=== PATIENT | female | born 1945 | race Caucasian/White ===

== ENCOUNTER → 2017-11-07 | Outpatient (CLI) | payer MEDICARE, BC ==
--- NOTE | 2017-11-19 12:11 | P.ARTDOP ---
Arterial Doppler LOWER EXTREMITY ARTERIAL DOPPLER: DATE OF SERVICE: 11/07/2017 Reason for study: Claudication. Doppler waveforms: []. Pulse volume recording: []. Pressure gradients: None. Ankle-brachial indices: Greater than 1 bilaterally. Toe pressures: [] on the right, [] on the left Impression: Very limited study with only ankle-brachial indices presented. These are greater than 1 and the limited data is normal..
== END | disposition home or self-care (01) ==
LOC: RADUSWWP 12:14
PROVIDERS: ATTEND Physical Medicine & Rehabilitation
DX: I70.213 Atherosclerosis of native arteries of extremities with intermittent claudication, bilateral legs (principal); M19.042 Primary osteoarthritis, left hand; M19.041 Primary osteoarthritis, right hand; M70.62 Trochanteric bursitis, left hip; M70.61 Trochanteric bursitis, right hip; F45.42 Pain disorder with related psychological factors; G89.21 Chronic pain due to trauma; M54.81 Occipital neuralgia; M50.122 Cervical disc disorder at C5-C6 level with radiculopathy; M47.22 Other spondylosis with radiculopathy, cervical region; M47.24 Other spondylosis with radiculopathy, thoracic region
CPT/HCPCS: 93922

== ENCOUNTER 2019-01-21 12:51 | Observation (INO) | payer MEDICARE, BC ==
[2019-01-21] MEDS ORDERED: ASPIRIN 81 MG PO STA (13:12)
[2019-01-21] MEDS ORDERED: NITROGLYCERIN OINT 1 INCH/GM PACKET TOPICAL STA (13:12)
--- NOTE | 2019-01-21 13:30 | ED ---
General Adult HPI - General Chief complaint: Chest Pain Stated complaint: RT lung and arm pain Time Seen by Provider: 01/21/19 12:55 Source: patient, RN notes reviewed Mode of arrival: ambulatory - History of Present Illness Initial comments: This is a 73-year-old female presents emergency department stating that she has had right-sided chest pain off-and-on for 3-4 years. Patient states it only happened once in a while and usually subsided after 2-3 minutes per patient stat es in the last few days she's had severe right-sided chest pain radiated to her right shoulder and into her jaw and it lasted for 45 minutes. Patient states she currently only has mild pain. Patient denies any diaphoresis. Patient denies any difficulty breathing. Patient denies any nausea vomiting. Patient states the last time she had severe pain was yesterday. - Related Data Home Medications Medication Instructions Recorded Confirmed Acetaminophen-Codeine 300-30mg 1 tab PO DAILY PRN 01/21/19 01/21/19 [Tylenol w/codeine #3] Estradiol [Estrace] 1 mg PO DAILY 01/21/19 01/21/19 HYDROcodone/APAP 7.5-325MG [[place] 1 tab PO DAILY PRN 01/21/19 01/21/19 7.5-325] Ipratropium [place] 0.06%Nasal 2 spray EA NOSTRIL BID PRN 01/21/19 01/21/19 [Atrovent Nasal 0.06%] Levothyroxine Sodium [Synthroid] 88 mcg PO DAILY 01/21/19 01/21/19 SUMAtriptan SUCCINATE [Onzetra 1 spray EA NOSTRIL DAILY PRN 01/21/19 01/21/19 Xsail] Tolterodine Tartrate [Detrol LA] 4 mg PO HS 01/21/19 01/21/19 clonazePAM [KlonoPIN] 0.5 mg PO DAILY@1400 01/21/19 01/21/19 clonazePAM [KlonoPIN] 1.5 mg PO BID 01/21/19 01/21/19 cycloSPORINE [Restasis] 1 drop BOTH EYES HS 01/21/19 01/21/19 Allergies Allergy/AdvReac Type Severity Reaction Status Date / Time Penicillins Allergy Swelling Verified 01/21/19 13:25 ciprofloxacin [From Cipro] AdvReac Nausea & Verified 01/21/19 13:25 Vomiting diazepam [From Valium] AdvReac Unknown Verified 01/21/19 13:25 duloxetine [From Cymbalta] AdvReac Nausea & Verified 01/21/19 13:25 Vomiting Iodinated Contrast- Oral and AdvReac Rash/Hives Verified 01/21/19 13:25 IV Dye meperidine [From Demerol] AdvReac Hallucinati Verified 01/21/19 13:25 ons rizatriptan [From Maxalt] AdvReac PALPATITION Verified 01/21/19 13:25 S topiramate [From Topamax] AdvReac SLURRED Verified 01/21/19 13:25 SPEACH Review of Systems ROS Statement: Those systems with pertinent positive or pertinent negative responses have been documented in the HPI. ROS Other: All systems not noted in ROS Statement are negative. Past Medical History Past Medical History: Thyroid Disorder Additional Past Medical History / Comment(s): Seizure History of Any Multi-Drug Resistant Organisms: None Reported Past Surgical History: Joint Replacement, Orthopedic Surgery Additional Past Surgical History / Comment(s): Lung,Ca, Skin Ca, Past Psychological History: No Psychological Hx Reported Smoking Status: Never smoker Past Alcohol Use History: Unable to Obtain Past Drug Use History: None Reported General Exam - General Exam Comments Initial Comments: GENERAL: Patient is well-developed and well-nourished. Patient is nontoxic and well- hydrated and is in mild distress. ENT: Neck is soft and supple. No significant lymphadenopathy is noted. Oropharynx is clear. Moist mucous membranes. Neck has full range of motion without eliciting any pain. EYES: The sclera were anicteric and conjunctiva were pink and moist. Extraocular movements were intact and pupils were equal round and reactive to light. Eyelids were unremarkable. PULMONARY: Unlabored respirations. Good breath sounds bilaterally. No audible rales rhonchi or wheezing was noted. CARDIOVASCULAR: There is a regular rate and rhythm without any murmurs gallops or rubs. ABDOMEN: Soft and nontender with normal bowel sounds. No palpable organomegaly was noted. There is no palpable pulsatile mass. SKIN: Skin is clear with no lesions or rashes and otherwise unremarkable. NEUROLOGIC: Patient is alert and oriented x3. Cranial nerves II through XII are grossly intact. Motor and sensory are also intact. Normal speech, volume and content. Symmetrical smile. MUSCULOSKELETAL: Normal extremities with adequate strength and full range of motion. LYMPHATICS: No significant lymphadenopathy is noted PSYCHIATRIC: Normal psychiatric evaluation. Course Vital Signs 01/21/19 12:52 Temperature 98.1 F Pulse Rate 72 Respiratory 22 Rate Blood Pressure 145/88 O2 Sat by Pulse 97 Oximetry Medical Decision Making - Medical Decision Making EKG shows normal sinus rhythm at 72 bpm FL interval 214 QRS is 86 Q-T intervals 380 QTC is 416. Patient's EKG shows no ST segment elevation or depression. Chest x-ray shows no acute abnormality. Ultrasound shows multiple gallstones in the gallbladder but no acute cholecystitis and no gallbladder the neck currently. I spoke with Dr. Craven he agreed to admit the patient admitted the patient wrote a minute orders I consult cardiology. - Lab Data Result diagrams: 01/21/19 13:23 01/21/19 13:23 Lab Results 01/21/19 01/21/19 01/21/19 Range/Units 13:23 13:23 13:23 WBC 10.9 H (3.8-10.6) k/uL RBC 4.67 (3.80-5.40) m/uL Hgb 14.0 (11.4-16.0) gm/dL Hct 41.7 (34.0-46.0) % MCV 89.3 (80.0-100.0) fL MCH 30.0 (25.0-35.0) pg MCHC 33.6 (31.0-37.0) g/dL RDW 13.9 (11.5-15.5) % Plt Count 299 (150-450) k/uL Neutrophils % 61 % Lymphocytes % 26 % Monocytes % 7 % Eosinophils % 3 % Basophils % 1 % Neutrophils # 6.7 (1.3-7.7) k/uL Lymphocytes # 2.8 (1.0-4.8) k/uL Monocytes # 0.8 (0-1.0) k/uL Eosinophils # 0.3 (0-0.7) k/uL Basophils # 0.1 (0-0.2) k/uL PT 10.3 (9.0-12.0) sec INR 1.0 (<1.2) APTT 24.7 (22.0-30.0) sec Sodium 138 (137-145) mmol/L Potassium 3.4 L (3.5-5.1) mmol/L Chloride 97 L (98-107) mmol/L Carbon Dioxide 33 H (22-30) mmol/L Anion Gap 8 mmol/L BUN 19 H (7-17) mg/dL Creatinine 0.81 (0.52-1.04) mg/dL Est GFR (CKD-EPI)AfAm 85 (>60 ml/min/1.73 sqM) Est GFR (CKD-EPI)NonAf 74 (>60 ml/min/1.73 sqM) Glucose 88 (74-99) mg/dL Calcium 9.5 (8.4-10.2) mg/dL Magnesium 2.0 (1.6-2.3) mg/dL Total Bilirubin 0.8 (0.2-1.3) mg/dL AST 24 (14-36) U/L ALT 19 (9-52) U/L Alkaline Phosphatase 58 (38-126) U/L Troponin I (0.000-0.034) ng/mL Total Protein 6.7 (6.3-8.2) g/dL Albumin 4.1 (3.5-5.0) g/dL 01/21/19 Range/Units 13:23 WBC (3.8-10.6) k/uL RBC (3.80-5.40) m/uL Hgb (11.4-16.0) gm/dL Hct (34.0-46.0) % MCV (80.0-100.0) fL MCH (25.0-35.0) pg MCHC (31.0-37.0) g/dL RDW (11.5-15.5) % Plt Count (150-450) k/uL Neutrophils % % Lymphocytes % % Monocytes % % Eosinophils % % Basophils % % Neutrophils # (1.3-7.7) k/uL Lymphocytes # (1.0-4.8) k/uL Monocytes # (0-1.0) k/uL Eosinophils # (0-0.7) k/uL Basophils # (0-0.2) k/uL PT (9.0-12.0) sec INR (<1.2) APTT (22.0-30.0) sec Sodium (137-145) mmol/L Potassium (3.5-5.1) mmol/L Chloride (98-107) mmol/L Carbon Dioxide (22-30) mmol/L Anion Gap mmol/L BUN (7-17) mg/dL Creatinine (0.52-1.04) mg/dL Est GFR (CKD-EPI)AfAm (>60 ml/min/1.73 sqM) Est GFR (CKD-EPI)NonAf (>60 ml/min/1.73 sqM) Glucose (74-99) mg/dL Calcium (8.4-10.2) mg/dL Magnesium (1.6-2.3) mg/dL Total Bilirubin (0.2-1.3) mg/dL AST (14-36) U/L ALT (9-52) U/L Alkaline Phosphatase (38-126) U/L Troponin I <0.012 (0.000-0.034) ng/mL Total Protein (6.3-8.2) g/dL Albumin (3.5-5.0) g/dL Disposition Clinical Impression: Chest pain, Cholelithiasis Disposition: ADMITTED IP TO THIS [facility] Referrals: Jerry Craven DO [Primary Care Provider] - 1-2 days Time of Disposition: 15:31
[2019-01-21 13:33] LABS: Basophils # (A) 0.1 k/uL (0-0.2); Basophils % (A) 1 %; Eosinophils # (A) 0.3 k/uL (0-0.7); Eosinophils % (A) 3 %; HCT 41.7 % (34.0-46.0); Lymphocytes # (A) 2.8 k/uL (1.0-4.8); Lymphocytes % (A) 26 %; MCHC 33.6 g/dL (31.0-37.0); MCV 89.3 fL (80.0-100.0); Mean Platelet Volume 6.7; Monocytes # (A) 0.8 k/uL (0-1.0); Monocytes % (A) 7 %; Neutrophils # (A) 6.7 k/uL (1.3-7.7); Neutrophils % (A) 61 %; Platelet Count 299 k/uL (150-450); RBC 4.67 m/uL (3.80-5.40); RDW 13.9 % (11.5-15.5); WBC 10.9 k/uL (3.8-10.6)
[2019-01-21 13:43] LABS: Albumin 4.1 g/dL (3.5-5.0); Calcium 9.5 mg/dL (8.4-10.2); Potassium 3.4 mmol/L (3.5-5.1); Total Bilirubin 0.8 mg/dL (0.2-1.3); Total Protein 6.7 g/dL (6.3-8.2)
--- NOTE | 2019-01-21 13:49 | XR ---
EXAMINATION TYPE: XR chest 2V DATE OF EXAM: 01/21/2019 COMPARISON: Chest x-ray January 16, 2010 HISTORY: Right-sided chest pain. TECHNIQUE: Frontal and lateral views of the chest are obtained. FINDINGS: Overlying EKG leads are present. Left hilar and suprahilar surgical clips are again seen. P ectus excavatum deformity on lateral view redemonstrated. Persistent some left-sided volume loss. The re is no new suspicious focal air space opacity, pleural effusion, or pneumothorax seen. The cardiac silhouette size remains within normal limits. The osseous structures are intact. IMPRESSION: Chronic changes without acute pulmonary process.
[2019-01-21 13:54] LABS: Partial Thromboplastin Time 24.7 sec (22.0-30.0); Prothrombin Time 10.3 sec (9.0-12.0)
--- NOTE | 2019-01-21 14:37 | US ---
EXAMINATION TYPE: US gallbladder DATE OF EXAM: 01/21/2019 COMPARISON: NONE CLINICAL HISTORY: Right-sided chest pain . RUQ pain, history of gallstones EXAM MEASUREMENTS: Liver Length: 14.3 cm Gallbladder Wall: 0.3 cm CBD: 0.4 cm Right Kidney: 10.0 x 4.1 x 4.1 cm Technical limitations due to overlying bowel content Pancreas: Tail obscured by overlying bowel gas Liver: best seen intercostally, appears heterogeneous Gallbladder: multiple stones Evidence for sonographic Blum's sign: no CBD: appears wnl Right Kidney: possible stone lower pole = 0.7cm Heterogeneous hyperechoic appearance of liver. Gallbladder shows multiple shadowing gallstones. No pe richolecystic fluid or abnormal gallbladder wall thickening. IMPRESSION: Confirmation of known gallstones. No convincing secondary ultrasound evidence for acute c holecystitis.
[2019-01-21] MEDS ORDERED: NITROGLYCERIN SL TABS 0.4 MG TAB SUBLINGUAL PRN (15:31)
[2019-01-21 17:05] VITALS: BMI 21.2
[2019-01-21] MEDS: NITROGLYCERIN OINT 1 INCH/GM PACKET TOPICAL SCH (20:05)
[2019-01-21] MEDS ORDERED: HYDROcodone/APAP 7.5-325MG 1 EACH TAB PO PRN (21:06)
[2019-01-21] MEDS ORDERED: IPRATROPIUM BROMIDE 0.06% NASAL SPRAY (15 ML) EA NOSTRIL PRN (21:06)
[2019-01-21] MEDS ORDERED: OXYBUTYNIN 10 MG TAB.ER.24 PO SCH (21:29)
[2019-01-21] MEDS: DOCUSATE 100 MG CAP PO SCH (21:34)
[2019-01-21] MEDS: clonazePAM 1 MG TAB PO SCH (21:34)
[2019-01-21 23:46] VITALS: RESP 18
[2019-01-22 02:58] LABS: Cholesterol 193 mg/dL (<200); HDL Cholesterol 57 mg/dL (40-60); LDL Cholesterol,Calculated 97 mg/dL (0-99); Triglycerides 193 mg/dL (<150)
[2019-01-22] MEDS ORDERED: LEVOTHYROXINE 88 MCG TAB PO SCH (06:30)
[2019-01-22] MEDS: clonazePAM 1 MG TAB PO SCH (06:33)
[2019-01-22] MEDS ORDERED: CAFFEINE CITRATE 60 MG/3 ML VIAL IV PRN (07:53)
[2019-01-22] MEDS ORDERED: AMINOPHYLLINE 500 MG/20 ML VIAL IV PRN (07:53)
--- NOTE | 2019-01-22 07:53 | P.CRDCN ---
History of Present Illness Consult date: 01/22/19 Chief complaint: Chest pain History of present illness: This is a pleasant 73-year-old female patient with no significant cardiac history but history of arthritis, the patient is a retired nurse, presented to the hospital complaining of chest discomfort. The patient describes chest discomfort, over the right and mid chest, as a sharp kind of discomfort, associated with shortness of breath, with radiation to the jaw. She stated that the chest discomfort is not exertional. It started about 4 weeks ago but lately it has been more often and more intense compared to before. No dizziness or lightheadedness, heart racing or fluttering, or syncope. Because the pain got more intense and more often she decided to come to the emergency room. No prior cardiac history. No history of coronary artery disease, congestive heart failure, or cardiac arrhythmia. During this admission, the patient EKG showed sinus rhythm without any significant ST or T-wave abnormalities. 3 sets of cardiac enzymes were checked and came in to be unr emarkable. The chest x-ray showed no acute abnormalities. The patient was ruled out for acute coronary event. No history of smoking. No significant family history of premature CAD. Past Medical History Past Medical History: Thyroid Disorder Additional Past Medical History / Comment(s): Seizure after lung surgeries History of Any Multi-Drug Resistant Organisms: None Reported Past Surgical History: Adenoidectomy, Appendectomy, Hysterectomy, Joint Replacement, Orthopedic Surgery, Tonsillectomy Additional Past Surgical History / Comment(s): right upper lobe Lung Ca, Skin Ca, epiderals back and neck, right thumb repair, bunionectomy Past Psychological History: No Psychological Hx Reported Smoking Status: Former smoker Past Alcohol Use History: Unable to Obtain Past Drug Use History: None Reported Medications and Allergies Home Medications Medication Instructions Recorded Confirmed Type Acetaminophen-Codeine 300-30mg 1 tab PO DAILY PRN 01/21/19 01/21/19 History [Tylenol w/codeine #3] Docusate [Colace] 100 mg PO DAILY 01/21/19 01/21/19 History Estradiol [Estrace] 1 mg PO DAILY 01/21/19 01/21/19 History HYDROcodone/APAP 7.5-325MG [[place] 1 tab PO DAILY PRN 01/21/19 01/21/19 History 7.5-325] Ipratropium [place] 0.06%Nasal 2 spray EA NOSTRIL BID PRN 01/21/19 01/21/19 History [Atrovent Nasal 0.06%] Levothyroxine Sodium [Synthroid] 88 mcg PO DAILY 01/21/19 01/21/19 History Psyllium Husk [Metamucil] PO 01/21/19 History SUMAtriptan SUCCINATE [Onzetra 1 spray EA NOSTRIL DAILY PRN 01/21/19 01/21/19 History Xsail] Tolterodine Tartrate [Detrol LA] 4 mg PO HS 01/21/19 01/21/19 History clonazePAM [KlonoPIN] 0.5 mg PO DAILY@1400 01/21/19 01/21/19 History clonazePAM [KlonoPIN] 1.5 mg PO BID 01/21/19 01/21/19 History cycloSPORINE [Restasis] 1 drop BOTH EYES HS 01/21/19 01/21/19 History Allergies Allergy/AdvReac Type Severity Reaction Status Date / Time Penicillins Allergy Swelling Verified 01/21/19 13:25 ciprofloxacin [From Cipro] AdvReac Nausea & Verified 01/21/19 13:25 Vomiting diazepam [From Valium] AdvReac Unknown Verified 01/21/19 13:25 duloxetine [From Cymbalta] AdvReac Nausea & Verified 01/21/19 13:25 Vomiting Iodinated Contrast- Oral and AdvReac Rash/Hives Verified 01/21/19 13:25 IV Dye meperidine [From Demerol] AdvReac Hallucinati Verified 01/21/19 13:25 ons rizatriptan [From Maxalt] AdvReac PALPATITION Verified 01/21/19 13:25 S topiramate [From Topamax] AdvReac SLURRED Verified 01/21/19 13:25 SPEACH Physical Exam Vitals: Vital Signs Temp Pulse Pulse Resp BP BP Pulse Ox 01/22/19 03:58 98.0 F 74 18 116/56 98 01/21/19 23:45 98.1 F 74 18 139/73 99 01/21/19 19:28 97.5 F L 75 107/67 95 01/21/19 16:01 76 16 136/72 99 01/21/19 16:00 97 F L 67 18 111/70 97 01/21/19 12:52 98.1 F 72 22 145/88 97 Intake and Output 01/21/19 01/22/19 01/22/19 22:59 06:59 14:59 Other: Voiding Method Toilet Toilet # Voids 1 2 - Constitutional General appearance: no acute distress - Respiratory Respiratory: bilateral: CTA - Cardiovascular Rhythm: regular Heart sounds: normal: S1, S2 Results 01/21/19 13:23 01/21/19 13:23 Cardiac Enzymes 01/21/19 01/21/19 01/21/19 Range/Units 13:23 13:23 19:38 AST 24 (14-36) U/L Troponin I <0.012 <0.012 (0.000-0.034) ng/mL 01/22/19 Range/Units 01:16 AST (14-36) U/L Troponin I <0.012 (0.000-0.034) ng/mL Coagulation 01/21/19 Range/Units 13:23 PT 10.3 (9.0-12.0) sec APTT 24.7 (22.0-30.0) sec Lipids 01/21/19 Range/Units 13:23 Triglycerides 193 H (<150) mg/dL Cholesterol 193 (<200) mg/dL HDL Cholesterol 57 (40-60) mg/dL CBC 01/21/19 Range/Units 13:23 WBC 10.9 H (3.8-10.6) k/uL RBC 4.67 (3.80-5.40) m/uL Hgb 14.0 (11.4-16.0) gm/dL Hct 41.7 (34.0-46.0) % Plt Count 299 (150-450) k/uL Comprehensive Metabolic Panel 01/21/19 Range/Units 13:23 Sodium 138 (137-145) mmol/L Potassium 3.4 L (3.5-5.1) mmol/L Chloride 97 L (98-107) mmol/L Carbon Dioxide 33 H (22-30) mmol/L BUN 19 H (7-17) mg/dL Creatinine 0.81 (0.52-1.04) mg/dL Glucose 88 (74-99) mg/dL Calcium 9.5 (8.4-10.2) mg/dL AST 24 (14-36) U/L ALT 19 (9-52) U/L Alkaline Phosphatase 58 (38-126) U/L Total Protein 6.7 (6.3-8.2) g/dL Albumin 4.1 (3.5-5.0) g/dL Current Medications Generic Name Dose Route Start Last Admin Trade Name Freq PRN Reason Stop Dose Admin Hydrocodone Bitart/Acetaminophen 1 each 01/21/19 21:06 [place] 7.5-325 PO DAILY PRN Pain Aspirin 325 mg 01/22/19 09:00 Aspirin PO DAILY ALEXA Clonazepam 0.5 mg 01/22/19 14:00 Klonopin PO DAILY@1400 ALEXA Clonazepam 1.5 mg 01/21/19 21:15 01/22/19 06:33 Klonopin PO 1.5 mg BID ALEXA Administration Cyclosporine 1 drops 01/22/19 21:00 Restasis 0.05% Ophth Soln BOTH EYES HS ALEXA Docusate Sodium 100 mg 01/21/19 21:15 01/21/19 21:34 Colace PO 100 mg DAILY ALEXA Administration Estradiol 1 mg 01/22/19 09:00 Estrace PO DAILY ALEXA Ipratropium [place] 2 spray 01/21/19 21:06 Atrovent Nasal EA NOSTRIL BID PRN Congestion Levothyroxine Sodium 88 mcg 01/22/19 06:30 01/22/19 06:31 Synthroid PO 88 mcg DAILY@0630 ALEXA Administration Nitroglycerin 0.4 mg 01/21/19 15:31 Nitrostat SUBLINGUAL Q5M PRN Chest Pain Nitroglycerin 1 inch 01/21/19 18:00 01/21/19 20:05 Nitro-Bid Oint TOPICAL Not Given Q6HR ALEXA Oxybutynin Chloride 10 mg 01/21/19 21:29 01/21/19 21:36 Ditropan Xl PO 10 mg HS ALEXA Administration Intake and Output 01/21/19 01/22/19 01/22/19 22:59 06:59 14:59 Other: Voiding Method Toilet Toilet # Voids 1 2 01/21/19 13:23 01/21/19 13:23 Assessment and Plan Assessment: Assessment #1 atypical/intermittent chest discomfort Plan #1 acute coronary event was ruled out #2 rule out severe coronary artery disease #3 I recommended obtaining a stress test #4 follow-up with the patient Thank you for allowing us participate in her care
[2019-01-22] MEDS ORDERED: DIPYRIDAMOLE IV ONE (08:00)
[2019-01-22] MEDS ORDERED: SODIUM CHLORIDE 0.9% IV ONE (08:00)
[2019-01-22] MEDS ORDERED: ESTRADIOL 0.5 MG TAB PO SCH (09:00)
[2019-01-22] MEDS ORDERED: ASPIRIN 325 MG TAB PO SCH (09:00)
[2019-01-22] MEDS: DOCUSATE 100 MG CAP PO SCH (11:06)
--- NOTE | 2019-01-22 12:02 | NM ---
EXAMINATION TYPE: NM stress persantine cardiolit DATE OF EXAM: 01/22/2019 COMPARISON: NONE HISTORY: Chest pain TECHNIQUE: After the intravenous administration of 10 mCi Tc 99m Sestamibi - Cardiolite resting SPEC T images acquired 45 minutes post injection. The patient received 31 mg Persantine, 24.6 mCi Tc 99m Sestamibi - Stress images obtained 40 minutes post injection FINDINGS: Review of stress and rest SPECT images demonstrates mild decreased uptake along the inferolateral lef t ventricle on stress as compared to rest images. Gated analysis shows normal wall motion with an es timated left ventricular ejection fraction of 68 %. 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
[2019-01-22] MEDS ORDERED: SODIUM CHLORIDE 0.9% 1,000 ML in EMPTY BAG 1 BAG IV ONE (12:20)
[2019-01-22] MEDS ORDERED: diphenhydrAMINE 50 MG/ML 1 ML VIAL IVP STA (12:29)
[2019-01-22] MEDS ORDERED: FAMOTIDINE 20 MG/2 ML VIAL IV STA (12:29)
[2019-01-22] MEDS ORDERED: methylPREDNISolone SOD SUCCI 125 MG/2 ML VIAL IV STA (12:29)
--- NOTE | 2019-01-22 12:38 | EST ---
EXERCISE STRESS DATE OF SERVICE: 01/22/2019 AGE: 73 SEX: Female HT: 5'1" WT: 120 pounds PROTOCOL: Persantine Cardiolite STAGE: DURATION OF EXERCISE: HEART RATE REST: 62 BLOOD PRESSURE REST: 104/63 MAXIMUM HEART RATE ACHIEVED: 84 MAXIMUM BLOOD PRESSURE: 145/66 85% MPHR: 127 100% MPHR: 149 METS: INDICATIONS: Chest pain. CLINICAL INFORMATION: STRESS DATA: Heart rate 62, pressure is 104/63 mmHg. Baseline EKG showed sinus mechanism. The patient was given 31 mg of Persantine per protocol. Max heart rate was 84 beats per minute and maximum pressure was 145/66 mmHg. Clinically, the patient reported no symptoms and the EKG did not show any significant ST or T-wave abnormalities concerning for ischemia. CONCLUSION: 1. Nondiagnostic electrocardiogram stress testing in response to . 2. Please follow up on the Cardiolite portion on separate report from radiology department. MMODL / IJN: [id number] /
--- NOTE | 2019-01-22 12:51 | P.PN ---
Progress Note - Text Results of stress test discussed with the patient and her . We recommend proceeding with cardiac catheterization for definitive diagnosis. I have discussed the risks, benefits and alternative therapies for the above-mentioned procedure and for both sedation/analgesia as well as necessary blood product administration, if indicated, as they pertain to this patient. The patient has indicated understanding and acceptance of the risks and procedures discussed. Questions have been answered appropriately and she is agreeable to move forward with the above stated procedure.
[2019-01-22] MEDS ORDERED: diphenhydrAMINE 50 MG/ML 1 ML VIAL IVP ONE (12:52)
[2019-01-22] MEDS ORDERED: methylPREDNISolone SOD SUCCI 125 MG/2 ML VIAL IV ONE (12:52)
[2019-01-22] MEDS ORDERED: IV FLUID CONTINUATION 1,000 ML IV ONE (12:53)
[2019-01-22] MEDS: MIDAZOLAM (PF) 2 MG/2 ML VIAL IV ONE ×2 (12:58→13:03)
[2019-01-22] MEDS ORDERED: LIDOCAINE 1% INJ 10MG/ML (20 ML MDV) SQ ONE (13:01)
[2019-01-22] MEDS ORDERED: MIDAZOLAM (PF) 2 MG/2 ML VIAL IV ONE (13:06)
[2019-01-22] MEDS ORDERED: IOPAMIDOL-370 125ML BTL INJ ONE (13:14)
[2019-01-22] MEDS ORDERED: RX INFO: IV CONTRAST WAS GIVEN 1 EACH MISC MISCELLANE PRN (13:22)
--- NOTE | 2019-01-22 13:25 | P.PCN ---
Date of Procedure: 01/22/19 Operative Findings: CARDIAC CATHETERIZATION PERFORMING PHYSICIAN: David Ribera MD, RPVI PROCEDURE PERFORMED: 1. Selective right and left coronary angiogram 2. Left heart catheterization INDICATION: This is a 73-year-old female patient who presented to the hospital with a chest discomfort and underwent stress test which revealed anterior ischemia. COMPLICATION: None APPROACH: Right common femoral artery LEVEL OF SEDATION: Moderate with this patient next 14 minutes PROCEDURE DESCRIPTION: After obtaining an informed consent, the patient was brought to cardiac production laborer. Local anesthesia was performed using lidocaine subcutaneously. The right common femoral artery was cannulated using Seldinger technique, the guidewire passed easily, following that we advanced a 6 Ivorian sheath dilator assembly, the wire and dilator were removed and sheath was flushed. Selective right and left coronary angiogram using a 6-Ivorian JR4 and JL catheters. Following that we did left heart catheterization using 6-Ivorian pigtail catheter. The procedure was completed there was no complication. SELECTIVE CORONARY ANGIOGRAM: The right coronary artery: Is a large caliber vessel and seems to be angiographically normal. Distally bifurcates into PDA and PLV branches both appeared to be angiographically normal. Left main: Has mild disease only in the range of 20-30%. The left circumflex: Is a moderate caliber vessel and nondominant vessel. It gives rises into 2 OM branches and both appeared to be angiographically normal. The left anterior descending artery: It is a large caliber vessel. Its angiographically normal. It gives rises into a medium size diagonal branch which seems to be angiographically normal. 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
[2019-01-22] MEDS ORDERED: SODIUM CHLORIDE 0.9% 1,000 ML IV SCH (13:30)
[2019-01-22 13:37] VITALS: TEMP 97.9
[2019-01-22] MEDS ORDERED: clonazePAM 1 MG TAB PO SCH (14:00)
[2019-01-22] MEDS ORDERED: Potassium Replacement Protocol 1 EACH MISC MISCELLANE PRN (15:19)
[2019-01-22 17:18] VITALS: BP 109/65; PULSE 77
[2019-01-22] MEDS: POTASSIUM CHLORIDE ER 20 MEQ TAB.ER PO SCH ×2 (17:54→18:34)
[2019-01-22] MEDS ORDERED: cycloSPORINE 0.05% OPHTH 0.4 ML DROPERETTE BOTH EYES SCH (21:00)
[2019-01-22] MEDS ORDERED: OXYBUTYNIN 10 MG TAB.ER.24 PO SCH (21:00)
== END 2019-01-22 18:53 | disposition home or self-care (01) ==
LOC: EC 12:51 → 1SOBS 15:40
PROVIDERS: ADMIT Family Medicine; ATTEND Family Medicine
DX: R07.89 Other chest pain (principal); R94.39 Abnormal result of other cardiovascular function study; I25.10 Atherosclerotic heart disease of native coronary artery without angina pectoris; K80.20 Calculus of gallbladder without cholecystitis without obstruction; E07.9 Disorder of thyroid, unspecified; R06.02 Shortness of breath; M19.90 Unspecified osteoarthritis, unspecified site; Z79.890 Hormone replacement therapy; Z79.891 Long term (current) use of opiate analgesic; Z79.899 Other long term (current) drug therapy; Z88.0 Allergy status to penicillin; Z88.1 Allergy status to other antibiotic agents; Z88.5 Allergy status to narcotic agent; Z88.8 Allergy status to other drugs, medicaments and biological substances; Z91.041 Radiographic dye allergy status; Z85.828 Personal history of other malignant neoplasm of skin; Z85.118 Personal history of other malignant neoplasm of bronchus and lung; Z90.710 Acquired absence of both cervix and uterus; Z90.49 Acquired absence of other specified parts of digestive tract; Z96.60 Presence of unspecified orthopedic joint implant; Z87.891 Personal history of nicotine dependence; Z86.69 Personal history of other diseases of the nervous system and sense organs
CPT/HCPCS: 99152; 99285; 36415; 93005; 93017; 93458; 80061; 80053; 83735; 84484 ×2; 85025; 85610; 85730; 71046; 76705; 78452; G0378 ×2; C1894; C1769 ×2; C1760; A9500; J1200; J2930; J2001; J1245; Q9967; J2250

== ENCOUNTER 2019-02-02 07:49 | Day surgery (SDC) | payer MEDICARE, BC ==
[2019-01-29 15:21] VITALS: BMI 21.2
[~2019-02-02 07:49] MED LIST: CLINDAMYCIN 900 MG in DEXTROSE 5% IN WATER 50 ML IVPB ONE; DEXAMETHASONE SOD PHOSPHATE 10 MG/ML 1 ML VIAL IV ONE; GENTAMICIN 280 MG in SODIUM CHLORIDE 0.9% 100 ML IVPB ONE; HEPARIN SODIUM,PORCINE 5,000 UNIT/ML 1 ML VIAL SQ ONE; LACTATED RINGERS 1,000 ML IV SCH; LIDOCAINE 1% 20 ML VIAL (10MG/ML) FOR IV START INTRADERMA PRN; ONDANSETRON 4 MG/2 ML VIAL IVP ONE; SCOPOLAMINE 1.5MG/72HR PATCH TRANSDERM ONE
--- NOTE | 2019-02-02 09:13 | P.GSHP ---
History of Present Illness H&P Date: 02/02/19 Chief Complaint: Right upper quadrant pain This a 73-year-old female who presents today for laparoscopic cholecystectomy. Patient with right quadrant pain. 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, hypotension, gallstones, constipation, graves disease, "bladder falls backwords", hx lung and skin cancer History of Any Multi-Drug Resistant Organisms: None Reported Past Surgical History: Adenoidectomy, Appendectomy, Breast Surgery, Heart Catheterization, Hysterectomy, Orthopedic Surgery, Tonsillectomy Additional Past Surgical History / Comment(s): right upper lung lobectomy, right thumb repair, rt bunionectomy, heart catheterization 01/22/19, corby mastectomy, mult breast biopsies, breast implants/later removed, Past Anesthesia/Blood Transfusion Reactions: Previous Problems w/ Anesthesia, Motion Sickness Additional Past Anesthesia/Blood Transfusion Reaction / Comment(s): "hypotension when younger" Past Psychological History: No Psychological Hx Reported Smoking Status: Former smoker Past Alcohol Use History: None Reported Additional Past Alcohol Use History / Comment(s): quit smoking 14 yrs ago, started smoking age 17, 3-4 cigarettes daily Past Drug Use History: None Reported - Past Family History Mother Family Medical History: Cancer Daughter(s) Family Medical History: Cancer Medications and Allergies Home Medications Medication Instructions Recorded Confirmed Type Acetaminophen-Codeine 300-30mg 1 tab PO DAILY PRN 01/21/19 01/29/19 History [Tylenol w/codeine #3] Docusate [Colace] 100 mg PO DAILY 01/21/19 01/29/19 History Estradiol [Estrace] 1 mg PO DAILY 01/21/19 01/29/19 History HYDROcodone/APAP 7.5-325MG [[place] 1 tab PO DAILY PRN 01/21/19 01/29/19 History 7.5-325] Ipratropium [place] 0.06%Nasal 2 spray EA NOSTRIL BID PRN 01/21/19 01/29/19 History [Atrovent Nasal 0.06%] Levothyroxine Sodium [Synthroid] 88 mcg PO DAILY 01/21/19 01/29/19 History Psyllium Husk [Metamucil] 0.8 cap PO DAILY 01/21/19 01/29/19 History SUMAtriptan SUCCINATE [Onzetra 1 spray EA NOSTRIL DAILY PRN 01/21/19 01/29/19 History Xsail] Tolterodine Tartrate [Detrol LA] 4 mg PO HS 01/21/19 01/29/19 History clonazePAM [KlonoPIN] 0.5 mg PO DAILY@1400 01/21/19 01/29/19 History clonazePAM [KlonoPIN] 1.5 mg PO BID 01/21/19 01/29/19 History cycloSPORINE [Restasis] 1 drop BOTH EYES HS 01/21/19 01/29/19 History Lidocaine 5% Patch [Lidoderm] 2 patch TOPICAL DAILY PRN 01/29/19 01/29/19 History Allergies Allergy/AdvReac Type Severity Reaction Status Date / Time Penicillins Allergy Swelling Verified 01/29/19 14:54 ciprofloxacin [From Cipro] AdvReac Nausea & Verified 01/29/19 14:54 Vomiting diazepam [From Valium] AdvReac "did not Verified 01/29/19 14:54 work" duloxetine [From Cymbalta] AdvReac Nausea & Verified 01/29/19 14:54 Vomiting Iodinated Contrast Media AdvReac Rash/Hives Verified 01/29/19 14:54 [Iodinated Contrast- Oral and IV Dye] meperidine [From Demerol] AdvReac Hallucinati Verified 01/29/19 14:54 ons/migrain es rizatriptan [From Maxalt] AdvReac PALPATITION Verified 01/29/19 14:54 S topiramate [From Topamax] AdvReac SLURRED Verified 01/29/19 14:54 SPEACH chloraprep Allergy skin peeled Uncoded 01/29/19 15:34 Surgical - Exam Vital Signs Temp Pulse Resp BP Pulse Ox 97.9 F 80 18 131/58 99 02/02/19 08:22 02/02/19 08:22 02/02/19 08:22 02/02/19 08:22 02/02/19 08:22 - General well developed, well nourished, no distress - Eyes PERRL - ENT normal pinna - Neck no masses - Respiratory normal expansion - Cardiovascular Rhythm: regular - Abdomen Abdomen: soft, non tender Assessment and Plan Assessment: Cholelithiasis Right quadrant pain We'll perform laparoscopic cholecystectomy.
[2019-02-02] MEDS ORDERED: NEOSTIGMINE 1 MG/ML 10 ML VIAL ONE (09:22)
[2019-02-02] MEDS ORDERED: ROCURONIUM BROMIDE 10 MG/ML 10 ML VIAL IV ONE (09:22)
[2019-02-02] MEDS ORDERED: GLYCOPYRROLATE 0.2 MG/ML 2 ML VIAL ONE (09:22)
[2019-02-02] MEDS ORDERED: PROPOFOL 10 MG/ML 20 ML VIAL IV ONE (09:22)
[2019-02-02] MEDS ORDERED: MIDAZOLAM 2 MG/2 ML VIAL ONE (09:22)
[2019-02-02] MEDS ORDERED: fentaNYL (PF) 50 MCG/ML 2 ML AMP ONE (09:22)
[2019-02-02] MEDS ORDERED: LIDOCAINE 1% INJ 10MG/ML (20 ML MDV) ONE (09:22)
[2019-02-02] MEDS ORDERED: BUPIVACAINE (PF) 0.5% 30 ML VIAL SQ ONE (09:49)
--- NOTE | 2019-02-02 10:10 | P.OP ---
Date of Procedure: 02/02/19 Preoperative Diagnosis: Cholelithiasis Postoperative Diagnosis: Cholelithiasis Procedure(s) Performed: Laparoscopic cholecystectomy Anesthesia: ROMULO Surgeon: Kirill Ocampo Pathology: other (Gallbladder) Condition: stable Disposition: PACU Description of Procedure: The patient was placed on the operating table. The patient received a general endotracheal tube anesthesia. The patients abdomen was prepped and draped in the usual sterile fashion. Through an infraumbilical stab incision, the fascia of the anterior abdominal wall was grasped with a pair of Kochers and then the Veress needle was placed in the peritoneal cavity. Position of the Veress needle was confirmed with positive drop test. The abdomen was then insufflated. After adequate insufflation, the 10 mm trocar was placed in the peritoneal cavity. Following this the laparoscope was placed in the peritoneal cavity. The patient was placed in the head-up, right side up position and then a 5 mm trocar was placed in the right lateral and right subcostal position under direct visualization. A 8 mm trocar was placed in the epigastric position. The gallbladder was grasped in the fundus and infundibulum. Traction on the gallbladder was placed in the lateral and the cephalad positions. The triangle of Calot was visualized.. The cystic duct was bluntly dissected until the union of the cystic duct and common bile duct was seen. A critical view of safety was achieved. The cystic duct was then divided and sealed with the Harmonic scissors. A PDS Endoloop was then placed throughout the cystic duct stump. The cystic artery divided and sealed with the Harmonic scissors. The gallbladder was then removed from the liver bed using Harmonic scissors. The gallbladder was then extracted through the epigastric port site. Operative field was checked for any bleeding spots and Harmonic scissors was used to coagulate the liver bed. The abdomen was irrigated. The trocars were removed. The skin was closed using interrupted 3-0 Vicryl suture. Dermabond dressing were applied. The patient tolerated the procedure well.
[2019-02-02 10:22] VITALS: TEMP 97.3
[2019-02-02] MEDS: HYDROmorphone 0.5 MG/0.5 ML SYRINGE IVP PRN ×2 (10:43→10:54)
[2019-02-02] MEDS ORDERED: HYDROcodone/APAP 5-325MG 1 EACH TAB PO ONE (11:00)
[2019-02-02] MEDS ORDERED: ONDANSETRON 4 MG/2 ML VIAL IVP ONE (11:00)
[2019-02-02 11:32] VITALS: BP 123/71; PULSE 67; RESP 18
== END 2019-02-02 12:26 | disposition home or self-care (01) ==
LOC: OR 07:49
PROVIDERS: ATTEND Surgery
DX: K80.10 Calculus of gallbladder with chronic cholecystitis without obstruction (principal); E05.00 Thyrotoxicosis with diffuse goiter without thyrotoxic crisis or storm; M19.90 Unspecified osteoarthritis, unspecified site; Z87.01 Personal history of pneumonia (recurrent); Z85.828 Personal history of other malignant neoplasm of skin; Z90.13 Acquired absence of bilateral breasts and nipples; Z90.710 Acquired absence of both cervix and uterus; Z87.891 Personal history of nicotine dependence; Z86.69 Personal history of other diseases of the nervous system and sense organs; Z85.118 Personal history of other malignant neoplasm of bronchus and lung; Z88.0 Allergy status to penicillin; Z79.890 Hormone replacement therapy; Z79.899 Other long term (current) drug therapy; Z88.1 Allergy status to other antibiotic agents; Z88.8 Allergy status to other drugs, medicaments and biological substances; Z91.041 Radiographic dye allergy status; Z88.5 Allergy status to narcotic agent; Z90.49 Acquired absence of other specified parts of digestive tract; Z90.2 Acquired absence of lung [part of]; Z90.89 Acquired absence of other organs; Z98.890 Other specified postprocedural states; Z80.9 Family history of malignant neoplasm, unspecified
CPT/HCPCS: 88304; 47562; J2250; J1644; J1100; J2710; J2405; J2001; J3010; J1580; J2704; J1170

== ENCOUNTER 2019-02-19 14:23 | Emergency (ER) | payer MEDICARE, BC ==
[2019-02-19] MEDS ORDERED: SODIUM CHLORIDE 0.9% 1,000 ML IV STA (15:19)
--- NOTE | 2019-02-19 15:34 | ED ---
Dizziness HPI - General Source: patient, RN notes reviewed Mode of arrival: wheelchair Limitations: no limitations - History of Present Illness MD Complaint: dizziness, lightheadedness <Carlos Mercedes - Last Filed: 02/19/19 17:04> <Lynnette Mann - Last Filed: 02/21/19 00:24> - General Chief Complaint: Dizziness Stated Complaint: POST OP PROBLEM, DIZZY AND FALLING Time Seen by Provider: 02/19/19 14:53 - History of Present Illness Initial Comments: This is a 73-year-old female who is 2 weeks post cholecystectomy who presents with complaints of dizziness since the surgery. She states her 10 she tries get up she feels lightheaded dizzy she has had several falls including one 3 days ago which she struck her right side of her ribs. She complains right rib pain right upper quadrant pain. No overt fevers chills nausea vomiting sweats or other symptoms (Carlos Mercedes) - Related Data Home Medications Medication Instructions Recorded Confirmed Acetaminophen-Codeine 300-30mg 1 tab PO DAILY PRN 01/21/19 02/19/19 [Tylenol w/codeine #3] Estradiol [Estrace] 1 mg PO DAILY 01/21/19 02/19/19 HYDROcodone/APAP 7.5-325MG [[place] 1 tab PO DAILY PRN 01/21/19 02/19/19 7.5-325] Ipratropium [place] 0.06%Nasal 2 spray EA NOSTRIL BID PRN 01/21/19 02/19/19 [Atrovent Nasal 0.06%] Levothyroxine Sodium [Synthroid] 88 mcg PO DAILY 01/21/19 02/19/19 Psyllium Husk [Metamucil] 0.8 cap PO DAILY 01/21/19 02/19/19 SUMAtriptan SUCCINATE [Onzetra 1 spray EA NOSTRIL DAILY PRN 01/21/19 02/19/19 Xsail] Tolterodine Tartrate [Detrol LA] 4 mg PO HS 01/21/19 02/19/19 clonazePAM [KlonoPIN] 0.5 mg PO DAILY@1400 01/21/19 02/19/19 clonazePAM [KlonoPIN] 1.5 mg PO BID 01/21/19 02/19/19 cycloSPORINE [Restasis] 1 drop BOTH EYES HS 01/21/19 02/19/19 Lidocaine 5% Patch [Lidoderm] 2 patch TOPICAL DAILY PRN 01/29/19 02/19/19 Meclizine [Antivert] 12.5 mg PO DAILY PRN 02/19/19 02/19/19 Previous Rx's Medication Instructions Recorded Docusate [Colace] 100 mg PO BID #20 capsule 02/02/19 Scopolamine [Scopolamine 1 MG/72 1 patch TRANSDERM Q72H #24 patch 02/19/19 HR patch] Allergies Allergy/AdvReac Type Severity Reaction Status Date / Time Penicillins Allergy Swelling Verified 02/19/19 15:07 ciprofloxacin [From Cipro] AdvReac Nausea & Verified 02/19/19 15:07 Vomiting diazepam [From Valium] AdvReac "did not Verified 02/19/19 15:07 work" duloxetine [From Cymbalta] AdvReac Nausea & Verified 02/19/19 15:07 Vomiting Iodinated Contrast Media AdvReac Rash/Hives Verified 02/19/19 15:07 [Iodinated Contrast- Oral and IV Dye] meperidine [From Demerol] AdvReac Hallucinati Verified 02/19/19 15:07 ons/migrain es rizatriptan [From Maxalt] AdvReac PALPATITION Verified 02/19/19 15:07 S topiramate [From Topamax] AdvReac SLURRED Verified 02/19/19 15:07 SPEACH chloraprep Allergy skin peeled Uncoded 02/19/19 14:33 Review of Systems ROS Other: All systems not noted in ROS Statement are negative. <Carlos Mercedes - Last Filed: 02/19/19 17:04> ROS Other: All systems not noted in ROS Statement are negative. <Lynnette Mann - Last Filed: 02/21/19 00:24> ROS Statement: Those systems with pertinent positive or pertinent negative responses have been documented in the HPI. 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, hypotension, gallstones, constipation, graves disease, "bladder falls backwords", hx lung and skin cancer History of Any Multi-Drug Resistant Organisms: None Reported Past Surgical History: Adenoidectomy, Appendectomy, Breast Surgery, Heart Catheterization, Hysterectomy, Orthopedic Surgery, Tonsillectomy Additional Past Surgical History / Comment(s): right upper lung lobectomy, right thumb repair, rt bunionectomy, heart catheterization 01/22/19, corby mastectomy, mult breast biopsies, breast implants/later removed, Past Anesthesia/Blood Transfusion Reactions: Previous Problems w/ Anesthesia, Motion Sickness Additional Past Anesthesia/Blood Transfusion Reaction / Comment(s): "hypotension when younger" Past Psychological History: No Psychological Hx Reported Smoking Status: Current every day smoker Past Alcohol Use History: None Reported Past Drug Use History: None Reported - Past Family History Mother Family Medical History: Cancer Daughter(s) Family Medical History: Cancer <Carlos Mercedes - Last Filed: 02/19/19 17:04> General Exam Limitations: no limitations General appearance: alert, in no apparent distress Head exam: Present: atraumatic, normocephalic, normal inspection Eye exam: Present: normal appearance, PERRL, EOMI. Absent: scleral icterus, conjunctival injection, periorbital swelling ENT exam: Present: normal exam, mucous membranes moist Neck exam: Present: normal inspection, full ROM, other (Stridor JVD or bruits). Absent: tenderness, meningismus, lymphadenopathy Respiratory exam: Present: normal lung sounds bilaterally, chest wall tenderness (Is palpation of the right lateral anterior chest wall no step-off crepitation). Absent: respiratory distress, wheezes, rales, rhonchi, stridor Cardiovascular Exam: Present: regular rate, normal rhythm, normal heart sounds. Absent: systolic murmur, diastolic murmur, rubs, gallop, clicks GI/Abdominal exam: Present: soft, normal bowel sounds. Absent: distended, tenderness, guarding, rebound, rigid Extremities exam: Present: normal inspection, full ROM, normal capillary refill. Absent: tenderness, pedal edema, joint swelling, calf tenderness Back exam: Present: normal inspection Neurological exam: Present: alert, oriented X3, CN II-XII intact Psychiatric exam: Present: normal affect, normal mood Skin exam: Present: warm, dry, intact, normal color. Absent: rash <Carlos Mercedes - Last Filed: 02/19/19 17:04> - General Exam Comments Initial Comments: This a well-developed well-nourished awake alert oriented 3 female (Carlos Mercedes) Course <Carlos Mercedes - Last Filed: 02/19/19 17:04> Vital Signs 02/19/19 02/19/19 02/19/19 14:30 14:55 16:32 Temperature 98.1 F Pulse Rate 77 96 Pulse Rate [ 79 Sitting] Pulse Rate [ 86 Standing] Pulse Rate [ 73 Supine] Respiratory 20 18 21 Rate Blood Pressure 124/70 157/86 Blood Pressure 135/78 [Sitting] Blood Pressure 122/66 [Standing] Blood Pressure 129/72 [Supine] O2 Sat by Pulse 98 98 Oximetry 02/19/19 02/19/19 17:32 18:23 Temperature 98.2 F Pulse Rate 64 71 Pulse Rate [ Sitting] Pulse Rate [ Standing] Pulse Rate [ Supine] Respiratory 22 20 Rate Blood Pressure 157/64 138/72 Blood Pressure [Sitting] Blood Pressure [Standing] Blood Pressure [Supine] O2 Sat by Pulse 99 98 Oximetry - Reevaluation(s) Reevaluation #1: 02/19/19 17:04 The patient case is endorsed to Dr. Mann. I did discuss the initial findings the patient family she is feeling fine at this time the initial labs from most part are within normal limits CT showed no evidence of acute findings x-ray showed no evidence of fractured ribs or pulmonary abnormalities. (Carlos Mercedes) EKG Findings - EKG Results: EKG: interpreted by ERMD (Sinus rhythm a 69 CT interval 120 QRS 88 QT since QTC 400/[address]-T wave changes) <Carlos Mercedes - Last Filed: 02/19/19 17:04> Medical Decision Making - Lab Data Result diagrams: 02/19/19 16:14 02/19/19 16:14 <Carlos Mercedes - Last Filed: 02/19/19 17:04> - Lab Data Result diagrams: 02/19/19 16:14 02/19/19 16:14 <Lynnette Mann - Last Filed: 02/21/19 00:24> - Medical Decision Making The patient had laboratory studies conducted. She was also sent for a chest x- ray and a CT of her brain. Upon return of the results I discussed them with the patient. The patient reports that she still feels vertiginous. Because of this I did provide the patient with a scopolamine patch. I did recommend transfer to Hospital for neurologic evaluation and possible MRI. The patient refused stating that she wanted to follow up outpatient with her neurologist. Also reports that she can follow up with her ear nose and throat doctor that she has seen previously for vertiginous symptoms. I did recommend immediate transfer however the patient continued to refuse. She was made aware of the risks to include increased disability and even . Patient understood this. She will be discharged home at this time. I did give her prescription for scopolamine patches. If she has any new or worsening symptoms or agrees to hospital admission, she should return to the emergency room. The patient was discharged home in stable condition (Lynnette Mann) - Lab Data Lab Results 02/19/19 02/19/19 02/19/19 Range/Units 16:14 16:14 16:14 WBC 7.7 (3.8-10.6) k/uL RBC 4.08 (3.80-5.40) m/uL Hgb 12.5 (11.4-16.0) gm/dL Hct 36.8 (34.0-46.0) % MCV 90.2 (80.0-100.0) fL MCH 30.7 (25.0-35.0) pg MCHC 34.0 (31.0-37.0) g/dL RDW 13.5 (11.5-15.5) % Plt Count 321 (150-450) k/uL Neutrophils % 56 % Lymphocytes % 33 % Monocytes % 5 % Eosinophils % 3 % Basophils % 1 % Neutrophils # 4.3 (1.3-7.7) k/uL Lymphocytes # 2.5 (1.0-4.8) k/uL Monocytes # 0.4 (0-1.0) k/uL Eosinophils # 0.2 (0-0.7) k/uL Basophils # 0.1 (0-0.2) k/uL Sodium 139 (137-145) mmol/L Potassium 3.7 (3.5-5.1) mmol/L Chloride 103 (98-107) mmol/L Carbon Dioxide 29 (22-30) mmol/L Anion Gap 7 mmol/L BUN 10 (7-17) mg/dL Creatinine 0.58 (0.52-1.04) mg/dL Est GFR (CKD-EPI)AfAm >90 (>60 ml/min/1.73 sqM) Est GFR (CKD-EPI)NonAf >90 (>60 ml/min/1.73 sqM) Glucose 83 (74-99) mg/dL Calcium 8.8 (8.4-10.2) mg/dL Magnesium (1.6-2.3) mg/dL Total Bilirubin 0.4 (0.2-1.3) mg/dL AST 27 (14-36) U/L ALT 14 (9-52) U/L Alkaline Phosphatase 60 (38-126) U/L Troponin I <0.012 (0.000-0.034) ng/mL Total Protein 6.2 L (6.3-8.2) g/dL Albumin 3.7 (3.5-5.0) g/dL Urine Color Urine Appearance (Clear) Urine pH (5.0-8.0) Ur Specific [place] (1.001-1.035) Urine Protein (Negative) Urine Glucose (UA) (Negative) Urine Ketones (Negative) Urine Blood (Negative) Urine Nitrite (Negative) Urine Bilirubin (Negative) Urine Urobilinogen (<2.0) mg/dL Ur Leukocyte Esterase (Negative) Urine RBC (0-5) /hpf Urine WBC (0-5) /hpf Ur Squamous Epith Cells (0-4) /hpf Urine Bacteria (None) /hpf Urine Mucus (None) /hpf 02/19/19 02/19/19 Range/Units 16:14 16:59 WBC (3.8-10.6) k/uL RBC (3.80-5.40) m/uL Hgb (11.4-16.0) gm/dL Hct (34.0-46.0) % MCV (80.0-100.0) fL MCH (25.0-35.0) pg MCHC (31.0-37.0) g/dL RDW (11.5-15.5) % Plt Count (150-450) k/uL Neutrophils % % Lymphocytes % % Monocytes % % Eosinophils % % Basophils % % Neutrophils # (1.3-7.7) k/uL Lymphocytes # (1.0-4.8) k/uL Monocytes # (0-1.0) k/uL Eosinophils # (0-0.7) k/uL Basophils # (0-0.2) k/uL Sodium (137-145) mmol/L Potassium (3.5-5.1) mmol/L Chloride (98-107) mmol/L Carbon Dioxide (22-30) mmol/L Anion Gap mmol/L BUN (7-17) mg/dL Creatinine (0.52-1.04) mg/dL Est GFR (CKD-EPI)AfAm (>60 ml/min/1.73 sqM) Est GFR (CKD-EPI)NonAf (>60 ml/min/1.73 sqM) Glucose (74-99) mg/dL Calcium (8.4-10.2) mg/dL Magnesium 2.3 (1.6-2.3) mg/dL Total Bilirubin (0.2-1.3) mg/dL AST (14-36) U/L ALT (9-52) U/L Alkaline Phosphatase (38-126) U/L Troponin I (0.000-0.034) ng/mL Total Protein (6.3-8.2) g/dL Albumin (3.5-5.0) g/dL Urine Color Light Yellow Urine Appearance Clear (Clear) Urine pH 6.5 (5.0-8.0) Ur Specific [place] 1.004 (1.001-1.035) Urine Protein Negative (Negative) Urine Glucose (UA) Negative (Negative) Urine Ketones Negative (Negative) Urine Blood Small H (Negative) Urine Nitrite Negative (Negative) Urine Bilirubin Negative (Negative) Urine Urobilinogen <2.0 (<2.0) mg/dL Ur Leukocyte Esterase Negative (Negative) Urine RBC 3 (0-5) /hpf Urine WBC <1 (0-5) /hpf Ur Squamous Epith Cells 1 (0-4) /hpf Urine Bacteria Rare H (None) /hpf Urine Mucus Rare H (None) /hpf Disposition <Carlos Mercedes - Last Filed: 02/19/19 17:04> Is patient prescribed a controlled substance at d/c from ED?: No Time of Disposition: 17:48 <Lynnette Mann - Last Filed: 02/21/19 00:24> Clinical Impression: Fall, Vertigo Disposition: HOME SELF-CARE Condition: Stable Instructions (If sedation given, give patient instructions): Dizziness (ED) Additional Instructions: Please follow-up with your ENT and your neurologist. You may need an MRI. Return to the emergency room for any new or worsening symptoms, or if you agree to hospital admission Prescriptions: Scopolamine [Scopolamine 1 MG/72 HR patch] 1 patch TRANSDERM Q72H #24 patch Referrals: Jerry Craven DO [Primary Care Provider] - 1-2 days
--- NOTE | 2019-02-19 15:48 | CT ---
EXAMINATION TYPE: CT brain wo con DATE OF EXAM: 02/19/2019 HISTORY: dizziness CT DLP: 1096.4 mGycm. Automated Exposure Control for Dose Reduction was Utilized. TECHNIQUE: CT scan of the head is performed without contrast. COMPARISON: CT brain 10/31/2010. FINDINGS: There is no acute intracranial hemorrhage or midline shift identified. There is diffuse v entricular and sulcal prominence consistent with diffuse age-related cerebral atrophy most prominent over the bilateral frontal lobes. Still-white matter differentiation is fairly well-preserved. The gl obes are intact and the visualized sinuses are clear. IMPRESSION: No acute intracranial hemorrhage or midline shift. There is mild to moderate diffuse ag e-related cerebral atrophy not significantly changed from prior.
--- NOTE | 2019-02-19 16:02 | XR ---
EXAMINATION TYPE: XR ribs RT w pa chest xray DATE OF EXAM: 02/19/2019 CLINICAL HISTORY: Following injury with right-sided chest and rib pain. TECHNIQUE: Single frontal view of the chest is obtained. A frontal and oblique images of the right-si ded ribs were acquired. COMPARISON: Chest x-ray January 21, 2019 FINDINGS: Overlying EKG leads are redemonstrated. Mediastinal clips left suprahilar level again seen. There is no focal air space opacity, pleural effusion, or pneumothorax seen. The cardiac silhouett e size appears within normal limits. The osseous structures are intact. Dedicated images of right-sided ribs show no acute displaced fracture. Overlying soft tissue is unrem arkable. IMPRESSION: 1. No acute pulmonary process. 2. No acute displaced right-sided rib fractures are seen.
[2019-02-19 16:36] LABS: Basophils # (A) 0.1 k/uL (0-0.2); Basophils % (A) 1 %; Eosinophils # (A) 0.2 k/uL (0-0.7); Eosinophils % (A) 3 %; HCT 36.8 % (34.0-46.0); HGB 12.5 gm/dL (11.4-16.0); Lymphocytes # (A) 2.5 k/uL (1.0-4.8); Lymphocytes % (A) 33 %; MCH 30.7 pg (25.0-35.0); MCV 90.2 fL (80.0-100.0); Mean Platelet Volume 6.3; Monocytes # (A) 0.4 k/uL (0-1.0); Monocytes % (A) 5 %; Neutrophils # (A) 4.3 k/uL (1.3-7.7); Neutrophils % (A) 56 %; Platelet Count 321 k/uL (150-450); RBC 4.08 m/uL (3.80-5.40); RDW 13.5 % (11.5-15.5); WBC 7.7 k/uL (3.8-10.6)
[2019-02-19 16:41] LABS: ALT 14 U/L (9-52); AST 27 U/L (14-36); African American GFR (CKD) >90 (>60 ml/min/1.73 sqM); Albumin 3.7 g/dL (3.5-5.0); Alkaline Phosphatase 60 U/L (38-126); Anion Gap 7 mmol/L; Blood Urea Nitrogen 10 mg/dL (7-17); Calcium 8.8 mg/dL (8.4-10.2); Carbon Dioxide 29 mmol/L (22-30); Chloride 103 mmol/L (98-107); Glucose 83 mg/dL (74-99); Potassium 3.7 mmol/L (3.5-5.1); Sodium 139 mmol/L (137-145); Total Bilirubin 0.4 mg/dL (0.2-1.3); Total Protein 6.2 g/dL (6.3-8.2)
[2019-02-19 17:16] LABS: Appearance,Urine Clear (Clear); Bacteria,Urine Rare /hpf; Bilirubin,Urine Negative (Negative); Blood,Urine Small (Negative); Color,Urine Light Yellow; Glucose,Urine (UA) Negative (Negative); Ketones,Urine Negative (Negative); Leukocyte Esterase,Urine Negative (Negative); Mucus,Urine Rare /hpf; Nitrite,Urine Negative (Negative); PH, Urine 6.5 (5.0-8.0); Protein,Urine Negative (Negative); RBC,Urine 3 /hpf (0-5); Specific Gravity,Urine 1.004 (1.001-1.035); Squamous Epithelial Cell,Urine 1 /hpf (0-4); Urobilinogen,Urine <2.0 mg/dL (<2.0); WBC,Urine <1 /hpf (0-5)
[2019-02-19] MEDS ORDERED: SCOPOLAMINE 1.5MG/72HR PATCH TRANSDERM STA (17:48)
[2019-02-19 19:27] VITALS: BP 138/72; PULSE 71; RESP 20; TEMP 98.2
== END 2019-02-19 18:23 | disposition home or self-care (01) ==
LOC: EC 14:23
DX: R42 Dizziness and giddiness (principal); R07.81 Pleurodynia; R10.11 Right upper quadrant pain; E05.00 Thyrotoxicosis with diffuse goiter without thyrotoxic crisis or storm; F17.200 Nicotine dependence, unspecified, uncomplicated; Z79.890 Hormone replacement therapy; Z79.899 Other long term (current) drug therapy; Z88.0 Allergy status to penicillin; Z88.1 Allergy status to other antibiotic agents; Z91.041 Radiographic dye allergy status; Z88.5 Allergy status to narcotic agent; Z88.8 Allergy status to other drugs, medicaments and biological substances; Z85.828 Personal history of other malignant neoplasm of skin; Z90.2 Acquired absence of lung [part of]; Z90.13 Acquired absence of bilateral breasts and nipples
CPT/HCPCS: 36415; 70450; 80053; 81001; 83735; 84484; 85025; 93005; 99284

== ENCOUNTER → 2019-02-24 | Outpatient (CLI) | payer MEDICARE, BC ==
--- NOTE | 2019-02-24 21:52 | MR ---
EXAMINATION TYPE: MR brain wo/w con DATE OF EXAM: 02/24/2019 COMPARISON: CT brain 02/19/2019 HISTORY: Disequilibrium, seizure, blurred vision CONTRAST: Performed utilizing 5.5 mL intravenous Gadavist gadolinium contrast. TECHNIQUE: Multiplanar, multiecho imaging on a 3.0 [place] magnet is performed through the brain. Stud y is performed within 24 hours of arrival to the hospital. The craniovertebral junction is normal. The pituitary is normal. Diffusion-weighted imaging is performed. No abnormal hyperintensity is present to suggest an acute i ntracranial infarct or acute ischemic change. There is a punctate subcortical white matter change in the right frontal lobe. Series 501 image 23. S ubcortical white matter changes are in the left frontal and left parietal lobes, series 501 image 19. There are additional subcortical white matter changes in the frontal lobes bilaterally, series 501 i mage 16. Findings are nonspecific. Differential diagnosis could include microvascular ischemic change . Multiple sclerosis should be considered. Lyme disease, vasculitis, migraine headaches could be cons idered. Ventricles and sulci are slightly prominent for the patient age. No abnormal enhancement is evident. IMPRESSIONS: 1. Scattered punctate subcortical white matter changes most likely on the basis of microvascular isch emic change.
== END | disposition home or self-care (01) ==
LOC: RADMRIMAIN 18:37
PROVIDERS: ATTEND Family Medicine
DX: G40.909 Epilepsy, unspecified, not intractable, without status epilepticus (principal); H81.90 Unspecified disorder of vestibular function, unspecified ear; H53.8 Other visual disturbances; R90.82 White matter disease, unspecified
CPT/HCPCS: 70553; A9585

== ENCOUNTER 2020-01-31 11:38 | Emergency (ER) | payer MEDICARE, BC ==
[2020-01-31 11:43] VITALS: PULSE 86; RESP 16
[2020-01-31] MEDS ORDERED: SODIUM CHLORIDE 0.9% 1,000 ML IV STA (12:20)
[2020-01-31] MEDS ORDERED: MORPHINE SULFATE 4 MG/ML SYRINGE IV STA (12:20)
[2020-01-31] MEDS ORDERED: DEXAMETHASONE SOD PHOSPHATE 10 MG/ML 1 ML VIAL IV STA (12:21)
[2020-01-31 12:46] LABS: Basophils # (A) 0.1 k/uL (0-0.2); Basophils % (A) 1 %; Eosinophils # (A) 0.2 k/uL (0-0.7); Eosinophils % (A) 2 %; HCT 38.4 % (34.0-46.0); HGB 12.9 gm/dL (11.4-16.0); Lymphocytes # (A) 2.5 k/uL (1.0-4.8); Lymphocytes % (A) 26 %; MCH 29.8 pg (25.0-35.0); MCHC 33.5 g/dL (31.0-37.0); MCV 88.9 fL (80.0-100.0); Mean Platelet Volume 6.8; Monocytes # (A) 0.5 k/uL (0-1.0); Monocytes % (A) 5 %; Neutrophils # (A) 6.2 k/uL (1.3-7.7); Neutrophils % (A) 65 %; Platelet Count 285 k/uL (150-450); RBC 4.33 m/uL (3.80-5.40); RDW 14.1 % (11.5-15.5); WBC 9.5 k/uL (3.8-10.6)
[2020-01-31 13:05] LABS: ALT 10 U/L (4-34); AST 23 U/L (14-36); African American GFR (CKD) >90 (>60 ml/min/1.73 sqM); Albumin 3.8 g/dL (3.5-5.0); Alkaline Phosphatase 58 U/L (38-126); Anion Gap 3 mmol/L; Blood Urea Nitrogen 13 mg/dL (7-17); Carbon Dioxide 33 mmol/L (22-30); Chloride 100 mmol/L (98-107); Glucose 126 mg/dL (74-99); Magnesium 1.9 mg/dL (1.6-2.3); Non-African American GFR(CKD) 90 (>60 ml/min/1.73 sqM); Phosphorus 3.2 mg/dL (2.5-4.5); Potassium 3.6 mmol/L (3.5-5.1); Sodium 136 mmol/L (137-145); Total Bilirubin 0.5 mg/dL (0.2-1.3); Total Protein 6.2 g/dL (6.3-8.2)
--- NOTE | 2020-01-31 13:08 | ED ---
Headache HPI - General Chief Complaint: Headache Stated Complaint: headache Time Seen by Provider: 01/31/20 12:14 Source: RN notes reviewed, old records reviewed Mode of arrival: ambulatory Limitations: no limitations - History of Present Illness Initial Comments: This is a 74-year-old female DF for evaluation of headache headache and neck pain. Patient has persistent headache persistent neck pain is a chronic issue for her symptoms now for the last few days. Patient is noted traumas no fevers. Patient is taking medications that she usually does take when she gets this pain with no significant improvement. No nausea vomiting. No neurological complaints MD Complaint: headache, other (Cluster headaches) -: days(s) Onset Description: gradual Location: right, left, frontal Severity: mild Severity scale (1-10): 3 Quality: throbbing Consistency: constant Improves With: nothing Worsens With: none Associated Symptoms: neck stiffness Treatments Prior to Arrival: none - Related Data Home Medications Medication Instructions Recorded Confirmed Acetaminophen-Codeine 300-30mg 1 tab PO DAILY PRN 01/21/19 02/19/19 [Tylenol w/codeine #3] HYDROcodone/APAP 7.5-325MG [[place] 1 tab PO DAILY PRN 01/21/19 02/19/19 7.5-325] Ipratropium [place] 0.06%Nasal 2 spray EA NOSTRIL BID PRN 01/21/19 02/19/19 [Atrovent Nasal 0.06%] Levothyroxine Sodium [Synthroid] 88 mcg PO DAILY 01/21/19 02/19/19 Psyllium Husk [Metamucil] 0.8 cap PO DAILY 01/21/19 02/19/19 SUMAtriptan SUCCINATE [Onzetra 1 spray EA NOSTRIL DAILY PRN 01/21/19 02/19/19 Xsail] Tolterodine Tartrate [Detrol LA] 4 mg PO HS 01/21/19 02/19/19 clonazePAM [KlonoPIN] 0.5 mg PO DAILY@1400 01/21/19 02/19/19 clonazePAM [KlonoPIN] 1.5 mg PO BID 01/21/19 02/19/19 cycloSPORINE [Restasis] 1 drop BOTH EYES HS 01/21/19 02/19/19 estradioL [Estrace] 1 mg PO DAILY 01/21/19 02/19/19 Lidocaine 5% Patch [Lidoderm] 2 patch TOPICAL DAILY PRN 01/29/19 02/19/19 Meclizine [Antivert] 12.5 mg PO DAILY PRN 02/19/19 02/19/19 Previous Rx's Medication Instructions Recorded Docusate [Colace] 100 mg PO BID #20 capsule 02/02/19 Scopolamine [Scopolamine 1 MG/72 1 patch TRANSDERM Q72H #24 patch 02/19/19 HR patch] Allergies Allergy/AdvReac Type Severity Reaction Status Date / Time Penicillins Allergy Swelling Verified 02/01/20 13:02 ciprofloxacin [From Cipro] AdvReac Nausea & Verified 02/01/20 13:02 Vomiting diazepam [From Valium] AdvReac "did not Verified 02/01/20 13:02 work" duloxetine [From Cymbalta] AdvReac Nausea & Verified 02/01/20 13:02 Vomiting Iodinated Contrast Media AdvReac Rash/Hives Verified 02/01/20 13:02 [Iodinated Contrast- Oral and IV Dye] meperidine [From Demerol] AdvReac Hallucinati Verified 02/01/20 13:02 ons/migrain es rizatriptan [From Maxalt] AdvReac PALPATITION Verified 02/01/20 13:02 S topiramate [From Topamax] AdvReac SLURRED Verified 02/01/20 13:02 SPEACH chloraprep Allergy skin peeled Uncoded 02/01/20 13:02 Review of Systems ROS Statement: Those systems with pertinent positive or pertinent negative responses have been documented in the HPI. ROS Other: All systems not noted in ROS Statement are negative. 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, hypotension, gallstones, constipation, graves disease, "bladder falls backwords", hx lung and skin cancer History of Any Multi-Drug Resistant Organisms: None Reported Past Surgical History: Adenoidectomy, Appendectomy, Breast Surgery, Heart Catheterization, Hysterectomy, Orthopedic Surgery, Tonsillectomy Additional Past Surgical History / Comment(s): right upper lung lobectomy, right thumb repair, rt bunionectomy, heart catheterization 01/22/19, corby mastectomy, mult breast biopsies, breast implants/later removed, Past Anesthesia/Blood Transfusion Reactions: Previous Problems w/ Anesthesia, Motion Sickness Additional Past Anesthesia/Blood Transfusion Reaction / Comment(s): "hypotension when younger" Past Psychological History: No Psychological Hx Reported Smoking Status: Never smoker Past Alcohol Use History: None Reported Past Drug Use History: None Reported - Past Family History Mother Family Medical History: Cancer Daughter(s) Family Medical History: Cancer General Exam Limitations: no limitations General appearance: alert, in no apparent distress Head exam: Present: atraumatic, normocephalic, normal inspection Eye exam: Present: normal appearance, PERRL, EOMI. Absent: scleral icterus, conjunctival injection, periorbital swelling ENT exam: Present: normal exam, mucous membranes moist Neck exam: Present: normal inspection. Absent: tenderness, meningismus, lymphadenopathy Respiratory exam: Present: normal lung sounds bilaterally. Absent: respiratory distress, wheezes, rales, rhonchi, stridor Cardiovascular Exam: Present: regular rate, normal rhythm, normal heart sounds. Absent: systolic murmur, diastolic murmur, rubs, gallop, clicks GI/Abdominal exam: Present: soft, normal bowel sounds. Absent: distended, tenderness, guarding, rebound, rigid Extremities exam: Present: normal inspection, full ROM, normal capillary refill. Absent: tenderness, pedal edema, joint swelling, calf tenderness Back exam: Present: normal inspection Neurological exam: Present: alert, oriented X3, CN II-XII intact Psychiatric exam: Present: normal affect, normal mood Skin exam: Present: warm, dry, intact, normal color. Absent: rash Course Vital Signs 01/31/20 01/31/20 11:40 14:22 Temperature 97.8 F 98.9 F Pulse Rate 86 86 Respiratory 16 16 Rate Blood Pressure 156/77 122/73 O2 Sat by Pulse 97 99 Oximetry - Reevaluation(s) Reevaluation #1: Medical record is reviewed Patient remained significantly symptomatic improved here in the ER Patient informed of findings and results, questions answered Patient feels good for discharge Medical Decision Making - Medical Decision Making 74 female DF for evaluation patient does have headache although headache is now resolved. Patient can be discharged home - Lab Data Result diagrams: 01/31/20 12:28 01/31/20 12:28 Lab Results 09/21/20 09/21/20 09/21/20 Range/Units 12:28 12:28 12:28 WBC 9.5 (3.8-10.6) k/uL RBC 4.33 (3.80-5.40) m/uL Hgb 12.9 (11.4-16.0) gm/dL Hct 38.4 (34.0-46.0) % MCV 88.9 (80.0-100.0) fL MCH 29.8 (25.0-35.0) pg MCHC 33.5 (31.0-37.0) g/dL RDW 14.1 (11.5-15.5) % Plt Count 285 (150-450) k/uL Neutrophils % 65 % Lymphocytes % 26 % Monocytes % 5 % Eosinophils % 2 % Basophils % 1 % Neutrophils # 6.2 (1.3-7.7) k/uL Lymphocytes # 2.5 (1.0-4.8) k/uL Monocytes # 0.5 (0-1.0) k/uL Eosinophils # 0.2 (0-0.7) k/uL Basophils # 0.1 (0-0.2) k/uL Sodium 136 L (137-145) mmol/L Potassium 3.6 (3.5-5.1) mmol/L Chloride 100 (98-107) mmol/L Carbon Dioxide 33 H (22-30) mmol/L Anion Gap 3 mmol/L BUN 13 (7-17) mg/dL Creatinine 0.64 (0.52-1.04) mg/dL Est GFR (CKD-EPI)AfAm >90 (>60 ml/min/1.73 sqM) Est GFR (CKD-EPI)NonAf 90 (>60 ml/min/1.73 sqM) Glucose 126 H (74-99) mg/dL Calcium 9.0 (8.4-10.2) mg/dL Phosphorus 3.2 (2.5-4.5) mg/dL Magnesium 1.9 (1.6-2.3) mg/dL Total Bilirubin 0.5 (0.2-1.3) mg/dL AST 23 (14-36) U/L ALT 10 (4-34) U/L Alkaline Phosphatase 58 (38-126) U/L Troponin I <0.012 (0.000-0.034) ng/mL Total Protein 6.2 L (6.3-8.2) g/dL Albumin 3.8 (3.5-5.0) g/dL - Radiology Data Radiology results: report reviewed (CT brain and C-spine negative for acute disease), image reviewed Disposition Clinical Impression: Headache Disposition: HOME SELF-CARE Condition: Good Instructions (If sedation given, give patient instructions): Acute Headache (ED) Is patient prescribed a controlled substance at d/c from ED?: No Referrals: Jerry Craven DO [Primary Care Provider] - 1-2 days
--- NOTE | 2020-01-31 13:21 | CT ---
EXAMINATION TYPE: CT brain cspine wo con DATE OF EXAM: 01/31/2020 COMPARISON: Prior CT brain 02/19/2019 HISTORY: Severe ARREDONDO CT DLP: 1271.9 mGycm Automated exposure control for dose reduction was used. TECHNIQUE: CT scan of the head and cervical spine are performed without contrast. FINDINGS: There is no acute intracranial hemorrhage, mass effect, or midline shift identified. The ventricles and sulci are within normal limits in size. The globes are intact and the visualized sin uses are clear. There are cerebral vascular calcifications. Cervical spine is visualized in its entirety from C1 through upper thoracic levels and demonstrates n ear-anatomic alignment without evidence of acute fracture or dislocation. Anterolisthesis grade 1 C3 -4, C4-5, Cho stasis grade 1 C5-6. There is multilevel spondylosis. Loss of disc height is greatest a t C4-5, C5-6 and C6-7. Uncovertebral joint hypertrophy results in foraminal encroachment at multiple levels, there is associated facet arthropathy. Prevertebral soft tissue appears within normal limits. The C1-C2 articulation is unremarkable. There is multilevel facet arthropathy. IMPRESSION: 1. There is no acute fracture or dislocation evident in the cervical spine, degenerative disc disease , facet arthropathy, multilevel foraminal encroachment. 2. No acute intracranial hemorrhage, mass effect, or midline shift is seen.
[2020-01-31] MEDS ORDERED: MORPHINE SULFATE 4 MG/ML SYRINGE IVP STA (13:43)
[2020-01-31] MEDS ORDERED: KETOROLAC 15 MG/ML 1 ML VIAL IVP STA (13:43)
[2020-01-31 14:23] VITALS: BP 122/73; TEMP 98.9
== END 2020-01-31 14:22 | disposition home or self-care (01) ==
LOC: EC 11:38
DX: R51 Headache (principal); E05.00 Thyrotoxicosis with diffuse goiter without thyrotoxic crisis or storm; N32.89 Other specified disorders of bladder; Z79.899 Other long term (current) drug therapy; Z79.890 Hormone replacement therapy; Z88.8 Allergy status to other drugs, medicaments and biological substances; Z88.3 Allergy status to other anti-infective agents; Z88.5 Allergy status to narcotic agent; Z91.041 Radiographic dye allergy status; Z88.1 Allergy status to other antibiotic agents; Z88.0 Allergy status to penicillin; Z85.118 Personal history of other malignant neoplasm of bronchus and lung; Z85.828 Personal history of other malignant neoplasm of skin; Z95.5 Presence of coronary angioplasty implant and graft; Z90.2 Acquired absence of lung [part of]; Z98.890 Other specified postprocedural states
CPT/HCPCS: 36415; 80053; 83735; 84100; 84484; 85025; 72125; 70450; 99285; 96374; 96375 ×2; 96376; 96361 ×2; J2270; J1100; J1885

== ENCOUNTER 2020-02-01 12:55 | Emergency (ER) | payer MEDICARE, BC ==
[2020-02-01 13:02] VITALS: BP 118/65; PULSE 61; RESP 18; TEMP 97.8
[2020-02-01] MEDS ORDERED: METOCLOPRAMIDE 5 MG/ML 2 ML VIAL IVP STA (13:16)
[2020-02-01] MEDS ORDERED: SODIUM CHLORIDE 0.9% 1,000 ML IV STA (13:16)
[2020-02-01] MEDS ORDERED: diphenhydrAMINE 50 MG/ML 1 ML VIAL IVP STA (13:16)
--- NOTE | 2020-02-01 13:16 | ED ---
Headache HPI - General Chief Complaint: Headache Stated Complaint: revisit-migraine Time Seen by Provider: 02/01/20 13:13 Mode of arrival: ambulatory Limitations: no limitations - History of Present Illness Initial Comments: Patient is 74-year-old female history of recurrent headaches and neck pain presenting to the emergency department with chief complaint of headache. Rebecajonathan croft states she was diagnosed with a limitation cluster migraines" long time ago and continues to have them intermittently. Patient states she also has history of myoclonus which is currently treated with clonidine. Patient reports intranasal sumatriptan typically works well for her headaches but not this time. Patient states her headache has been coming on and off for about 2 weeks. States yesterday she was released from the emergency department after having laboratory work and a computed tomography scan of the head. Patient states she was also given antiemetics, fluids and morphine which alleviated some of the symptoms but not completely. She denies any night sweats or chills. Patient does have some neck pain that actually improved from yesterday because she was given steroids. States this is not the worst headache of her life. States most of the headache is located in the forehead. Patient states 10 mg of morphine works well for her headaches. - Related Data Home Medications Medication Instructions Recorded Confirmed Acetaminophen-Codeine 300-30mg 1 tab PO DAILY PRN 01/21/19 02/19/19 [Tylenol w/codeine #3] HYDROcodone/APAP 7.5-325MG [[place] 1 tab PO DAILY PRN 01/21/19 02/19/19 7.5-325] Ipratropium [place] 0.06%Nasal 2 spray EA NOSTRIL BID PRN 01/21/19 02/19/19 [Atrovent Nasal 0.06%] Levothyroxine Sodium [Synthroid] 88 mcg PO DAILY 01/21/19 02/19/19 Psyllium Husk [Metamucil] 0.8 cap PO DAILY 01/21/19 02/19/19 SUMAtriptan SUCCINATE [Onzetra 1 spray EA NOSTRIL DAILY PRN 01/21/19 02/19/19 Xsail] Tolterodine Tartrate [Detrol LA] 4 mg PO HS 01/21/19 02/19/19 clonazePAM [KlonoPIN] 0.5 mg PO DAILY@1400 01/21/19 02/19/19 clonazePAM [KlonoPIN] 1.5 mg PO BID 01/21/19 02/19/19 cycloSPORINE [Restasis] 1 drop BOTH EYES HS 01/21/19 02/19/19 estradioL [Estrace] 1 mg PO DAILY 01/21/19 02/19/19 Lidocaine 5% Patch [Lidoderm] 2 patch TOPICAL DAILY PRN 01/29/19 02/19/19 Meclizine [Antivert] 12.5 mg PO DAILY PRN 02/19/19 02/19/19 Previous Rx's Medication Instructions Recorded Docusate [Colace] 100 mg PO BID #20 capsule 02/02/19 Scopolamine [Scopolamine 1 MG/72 1 patch TRANSDERM Q72H #24 patch 02/19/19 HR patch] Allergies Allergy/AdvReac Type Severity Reaction Status Date / Time Penicillins Allergy Swelling Verified 02/01/20 13:02 ciprofloxacin [From Cipro] AdvReac Nausea & Verified 02/01/20 13:02 Vomiting diazepam [From Valium] AdvReac "did not Verified 02/01/20 13:02 work" duloxetine [From Cymbalta] AdvReac Nausea & Verified 02/01/20 13:02 Vomiting Iodinated Contrast Media AdvReac Rash/Hives Verified 02/01/20 13:02 [Iodinated Contrast- Oral and IV Dye] meperidine [From Demerol] AdvReac Hallucinati Verified 02/01/20 13:02 ons/migrain es rizatriptan [From Maxalt] AdvReac PALPATITION Verified 02/01/20 13:02 S topiramate [From Topamax] AdvReac SLURRED Verified 02/01/20 13:02 SPEACH chloraprep Allergy skin peeled Uncoded 02/01/20 13:02 Review of Systems ROS Statement: Those systems with pertinent positive or pertinent negative responses have been documented in the HPI. ROS Other: All systems not noted in ROS Statement are negative. 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, hypotension, gallstones, constipation, graves disease, "bladder falls backwords", hx lung and skin cancer History of Any Multi-Drug Resistant Organisms: None Reported Past Surgical History: Adenoidectomy, Appendectomy, Breast Surgery, Heart Catheterization, Hysterectomy, Orthopedic Surgery, Tonsillectomy Additional Past Surgical History / Comment(s): right upper lung lobectomy, right thumb repair, rt bunionectomy, heart catheterization 01/22/19, corby mastectomy, mult breast biopsies, breast implants/later removed, Past Anesthesia/Blood Transfusion Reactions: Previous Problems w/ Anesthesia, Motion Sickness Additional Past Anesthesia/Blood Transfusion Reaction / Comment(s): "hypotension when younger" Past Psychological History: No Psychological Hx Reported Smoking Status: Never smoker Past Alcohol Use History: None Reported Past Drug Use History: None Reported - Past Family History Mother Family Medical History: Cancer Daughter(s) Family Medical History: Cancer General Exam Limitations: no limitations General appearance: alert, in no apparent distress Head exam: Present: atraumatic, normocephalic, normal inspection Eye exam: Present: normal appearance, PERRL, EOMI, other (Limited ophthalmic examination reveals no acute pathology). Absent: scleral icterus, conjunctival injection, nystagmus, periorbital swelling, periorbital tenderness Pupils: Present: normal accommodation ENT exam: Present: normal exam, normal oropharynx, mucous membranes moist, TM's normal bilaterally, normal external ear exam Neck exam: Present: normal inspection, full ROM. Absent: tenderness Respiratory exam: Present: normal lung sounds bilaterally. Absent: respiratory distress, wheezes, rales Cardiovascular Exam: Present: regular rate, normal rhythm, normal heart sounds Extremities exam: Present: normal inspection, full ROM, normal capillary refill. Absent: tenderness Back exam: Present: normal inspection, full ROM. Absent: tenderness Neurological exam: Present: alert, oriented X3, CN II-XII intact, normal gait Psychiatric exam: Present: normal affect, normal mood Skin exam: Present: warm, dry, intact, normal color Course Vital Signs 02/01/20 12:58 Temperature 97.8 F Pulse Rate 61 Respiratory 18 Rate Blood Pressure 118/65 O2 Sat by Pulse 98 Oximetry - Reevaluation(s) Reevaluation #1: 02/01/20 14:30 Medical record reviewed Medical Decision Making - Medical Decision Making Patient is a 74-year-old female with history of recurrent headaches, myoclonus, cluster migraines presenting to emergency Department with a chief complaint of headache. Physical examination is unremarkable. Most of the headache is located behind her eyes and and forehead. She does not have any visual changes. Blood pressure is 15 the right and 16 in the left. Limited ophthalmic examination shows no acute pathologies. Patient is requesting 10 mg of morphine which typically resolves her headaches. I was little hesitant due to the high dose, patient was given only 8 mg of morphine and 4 mg of Zofran. On reevaluation, patient reports improvement in her symptoms and states she would like to go home. Should return parameters were thoroughly discussed the patient was on standing agreeable. She was advised to follow with primary care physician. Case discussed with physician. Disposition Clinical Impression: Headache Disposition: HOME SELF-CARE Condition: Stable Instructions (If sedation given, give patient instructions): Acute Headache (ED) Additional Instructions: Follow with her primary care physician. Return to emergency department if symptoms worsen. Is patient prescribed a controlled substance at d/c from ED?: No Referrals: Jerry Craven DO [Primary Care Provider] - 1-2 days Time of Disposition: 14:21
[2020-02-01] MEDS ORDERED: MORPHINE SULFATE 4 MG/ML SYRINGE IM STA (13:34)
[2020-02-01] MEDS ORDERED: ONDANSETRON ODT 4 MG TAB PO STA (13:35)
== END 2020-02-01 14:40 | disposition home or self-care (01) ==
LOC: EC 12:55
DX: G43.909 Migraine, unspecified, not intractable, without status migrainosus (principal); G25.3 Myoclonus; M54.2 Cervicalgia; E05.00 Thyrotoxicosis with diffuse goiter without thyrotoxic crisis or storm; Z79.890 Hormone replacement therapy; Z79.899 Other long term (current) drug therapy; Z88.0 Allergy status to penicillin; Z88.1 Allergy status to other antibiotic agents; Z88.8 Allergy status to other drugs, medicaments and biological substances; Z91.041 Radiographic dye allergy status; Z88.5 Allergy status to narcotic agent; Z88.3 Allergy status to other anti-infective agents; Z85.118 Personal history of other malignant neoplasm of bronchus and lung; Z95.5 Presence of coronary angioplasty implant and graft; Z90.2 Acquired absence of lung [part of]; Z98.890 Other specified postprocedural states
CPT/HCPCS: 96372; 99283; J2270

== ENCOUNTER → 2023-12-12 | Outpatient (CLI) | payer MEDICARE, BC ==
[2023-12-12 17:09] LABS: Basophils # (A) 0.05 X 10*3/uL (0.00-0.10); Basophils % (A) 0.7 %; Eosinophils # (A) 0.14 X 10*3/uL (0.04-0.35); HCT 40.2 % (37.2-46.3); Lymphocytes # (A) 2.41 X 10*3/uL (0.90-5.00); Lymphocytes % (A) 34.8 %; MCHC 32.3 g/dL (32.0-37.0); MCV 95.7 FL (80.0-97.0); Mean Platelet Volume 11.2 FL (9.5-12.2); Monocytes # (A) 0.51 X 10*3/uL (0.20-1.00); Monocytes % (A) 7.4 %; NRBC Per 100 WBC 0 X 10*3/uL (0.00-0.01); Platelet Count 245 X 10*3/uL (140-440); RDW 13.5 % (11.5-14.5); WBC 6.92 X 10*3/uL (4.50-10.00)
[2023-12-12 18:28] LABS: Blood Urea Nitrogen 14.3 mg/dL (9.0-27.0); Carbon Dioxide 22.9 mmol/L (21.6-31.8); Chloride 101 mmol/L (96-109); Potassium 4.7 mmol/L (3.5-5.5); Sodium 135 mmol/L (135-145)
== END | disposition home or self-care (01) ==
LOC: LABPAT 11:06
PROVIDERS: ATTEND Obstetrics & Gynecology
DX: Z01.818 Encounter for other preprocedural examination (principal)
CPT/HCPCS: 80051; 82565; 84520; 85025; 87086; 93005

== ENCOUNTER → 2023-12-23 | Outpatient (CLI) | payer MEDICARE, BC | END | disposition home or self-care (01) | LOC: LABPAT 13:02 | PROVIDERS: ATTEND Obstetrics & Gynecology | DX: Z53.9 Procedure and treatment not carried out, unspecified reason (principal) ==

== ENCOUNTER 2024-03-31 01:53 | Observation (INO) | payer MEDICARE, BC ==
--- NOTE | 2024-03-31 02:22 | ED ---
General Adult HPI - General Chief complaint: Altered Mental Status Stated complaint: Nausea, Weakness Time Seen by Provider: 03/31/24 02:01 Source: patient Mode of arrival: wheelchair Limitations: no limitations - History of Present Illness Initial comments: Dictation was produced using [employer] dictation software. please excuse any grammatical, word or spelling errors. Chief Complaint: 79-year-old female presents with lethargy History of Present Illness: Patient 79-year-old female she has chronic pain due to chronic back pain. She had her implanted pain pump refilled with morphine. Shortly after her morphine was refilled she started to have some symptoms of lightheadedness. In the middle of the night she started throwing up. Has been noticed. She also shortly after was unable to walk. Patient states that she feels like she is being overdosed on morphine. Denies any fever, chills or night sweats. The ROS documented in this emergency department record has been reviewed and confirmed by me. Those systems with pertinent positive or negative responses have been documented in the HPI. All other systems are other negative and/or noncontributory. - Related Data Home Medications Medication Instructions Recorded Confirmed Acetaminophen-Codeine 300-30mg 1 tab PO DAILY PRN 01/21/19 02/19/19 [Tylenol w/codeine #3] HYDROcodone/APAP 7.5-325MG [[place] 1 tab PO DAILY PRN 01/21/19 02/19/19 7.5-325] Ipratropium [place] 0.06%Nasal 2 spray EA NOSTRIL BID PRN 01/21/19 02/19/19 [Atrovent Nasal 0.06%] Levothyroxine Sodium [Synthroid] 88 mcg PO DAILY 01/21/19 02/19/19 Psyllium Husk [Metamucil] 0.8 cap PO DAILY 01/21/19 02/19/19 SUMAtriptan succinate [Onzetra 1 spray EA NOSTRIL DAILY PRN 01/21/19 02/19/19 Xsail] Tolterodine Tartrate [Detrol LA] 4 mg PO HS 01/21/19 02/19/19 clonazePAM [KlonoPIN] 0.5 mg PO DAILY@1400 01/21/19 02/19/19 clonazePAM [KlonoPIN] 1.5 mg PO BID 01/21/19 02/19/19 cycloSPORINE [Restasis] 1 drop BOTH EYES HS 01/21/19 02/19/19 estradioL [Estrace] 1 mg PO DAILY 01/21/19 02/19/19 Lidocaine 5% Patch [Lidoderm] 2 patch TOPICAL DAILY PRN 01/29/19 02/19/19 Meclizine [Antivert] 12.5 mg PO DAILY PRN 02/19/19 02/19/19 Previous Rx's Medication Instructions Recorded Docusate [Colace] 100 mg PO BID #20 capsule 02/02/19 Scopolamine [Scopolamine 1 MG/72 1 patch TRANSDERM Q72H #24 patch 02/19/19 HR patch] Allergies Allergy/AdvReac Type Severity Reaction Status Date / Time Penicillins Allergy Swelling Verified 03/31/24 01:57 ciprofloxacin [From Cipro] AdvReac Nausea & Verified 03/31/24 01:57 Vomiting diazepam [From Valium] AdvReac "did not Verified 03/31/24 01:57 work" duloxetine [From Cymbalta] AdvReac Nausea & Verified 03/31/24 01:57 Vomiting Iodinated Contrast Media AdvReac Rash/Hives Verified 03/31/24 01:57 [Iodinated Contrast- Oral and IV Dye] meperidine [From Demerol] AdvReac Hallucinati Verified 03/31/24 01:57 ons/migrain es rizatriptan [From Maxalt] AdvReac PALPATITION Verified 03/31/24 01:57 S topiramate [From Topamax] AdvReac SLURRED Verified 03/31/24 01:57 SPEACH chloraprep Allergy skin peeled Uncoded 03/31/24 01:57 Review of Systems ROS Statement: Those systems with pertinent positive or pertinent negative responses have been documented in the HPI. ROS Other: All systems not noted in ROS Statement are negative. 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, hypotension, gallstones, constipation, graves disease, "bladder falls backwords", hx lung and skin cancer History of Any Multi-Drug Resistant Organisms: None Reported Past Surgical History: Adenoidectomy, Appendectomy, Breast Surgery, Heart Catheterization, Hysterectomy, Orthopedic Surgery, Tonsillectomy Additional Past Surgical History / Comment(s): right upper lung lobectomy, right thumb repair, rt bunionectomy, heart catheterization 01/22/19, corby mastectomy, mult breast biopsies, breast implants/later removed, Past Anesthesia/Blood Transfusion Reactions: Previous Problems w/ Anesthesia, Motion Sickness Additional Past Anesthesia/Blood Transfusion Reaction / Comment(s): "hypotension when younger" Past Psychological History: No Psychological Hx Reported Smoking Status: Never smoker Past Alcohol Use History: None Reported Past Drug Use History: None Reported - Past Family History Mother Family Medical History: Cancer Daughter(s) Family Medical History: Cancer General Exam - General Exam Comments Initial Comments: PHYSICAL EXAM: General Impression: Alert and oriented x3, malaised HEENT: Normocephalic atraumatic, extra-ocular movements intact, pupils equal and reactive to light bilaterally, mucous membranes moist. Cardiovascular: Heart regular rate and rhythm Chest: Able to complete full sentences, no retractions, no tachypnea Abdomen: abdomen soft, non-tender, non-distended, no organomegaly Musculoskeletal: Pulses present and equal in all extremities, no peripheral edema Motor: no focal deficits noted Neurological: CN II-XII grossly intact, no focal motor or sensory deficits noted Skin: Intact with no visualized rashes Psych: Normal affect and mood Limitations: no limitations Course Vital Signs 03/31/24 03/31/24 03/31/24 01:56 02:08 02:09 Pulse Rate 90 91 85 Respiratory 14 10 L 10 L Rate Blood Pressure 87/52 94/55 O2 Sat by Pulse 91 L 88 L 99 Oximetry 03/31/24 03/31/24 03/31/24 02:24 02:54 03:17 Pulse Rate 73 72 Respiratory 8 L 12 12 Rate Blood Pressure 113/62 100/59 O2 Sat by Pulse 100 100 Oximetry 03/31/24 03/31/24 03:30 03:45 Pulse Rate 67 66 Respiratory 10 L 10 L Rate Blood Pressure 100/59 93/57 O2 Sat by Pulse 100 100 Oximetry EKG Findings - EKG Comments: EKG Findings:: My EKG interpretation: Ventricular rate 90, sinus rhythm,. 165, QRS 80, QTc 423. No [place] prolongation, no QTC prolongation, no ST or T-wave changes noted. Overall, this EKG is unremarkable Medical Decision Making - Medical Decision Making Was pt. sent in by a medical professional or institution (, PA, C[employer]ER, urgent care, hospital, or residential...) When possible be specific @ -No Did you speak to anyone other than the patient for history (EMS, parent, family, police, friend...)? What history was obtained from this source @ -No Did you review nursing and triage notes (agree or disagree)? Why? @ -I reviewed and agree with nursing and triage notes Were old charts reviewed (outside hosp., previous admission, EMS record, old EKG, old radiological studies, urgent care reports/EKG's, residential records)? Report findings @ -No old charts were reviewed Differential Diagnosis (chest pain, altered mental status, abdominal pain women, abdominal pain men, vaginal bleeding, musculoskeletal, weakness, fever, dyspnea, syncope, headache, dizziness, GI bleed, back pain, seizure, CVA, palpatations, mental health)? @ -Sepsis, dehydration, opiate toxicity EKG interpreted by me (3pts min.). @ -See above X-rays interpreted by me (1pt min.). @ -Chest x-ray is nonacute CT interpreted by me (1pt min.). @ -None done U/S interpreted by me (1pt. min.). @ -None done What testing was considered but not performed or refused? (CT, X-rays, U/S, labs)? Why? @ -None What meds were considered but not given or refused? Why? @ -None Was smoking cessation discussed for >3mins.? @ -No Were there social determinants of health that impacted care today? How? (Homelessness, low income, unemployed, alcoholism, drug addiction, transportation, low edu. Level, literacy, decrease access to med. care, alf, rehab)? @ -Controlled substance use disorder Was there de-escalation of care discussed even if they declined (Discuss DNR or withdrawal of care, Hospice)? DNR status @ -No What co-morbidities impacted this encounter? (DM, HTN, Smoking, COPD, CAD, Cancer, CVA, ARF, Chemo, Hep., AIDS, mental health diagnosis, sleep apnea, morbid obesity)? @ -Chronic back pain Was patient admitted / discharged? Hospital course, mention meds given and route, prescriptions, significant lab abnormalities, going to OR and other pertinent info. @ -79-year-old female presents emergency department for lethargy, altered mental status weakness after having pain pump refilled. Vital signs upon arrival showed hypopnea. Rest of vital signs within acceptable limits. There is concern that perhaps patient is getting too high of a dose of morphine or there could be some sort of a pain pump malfunction. She is given Narcan with immediate improvement of her mentation and symptoms. An attempt was made to contact [employer] pain pump labor union business representative however it is currently off hours. Patient will be admitted with consultation to a pain management for concerns of pain pump malfunction. Did you discuss the management of the patient with other professionals (professionals i.e. , PA, [employer]ER, lab, RT, psych nurse, 7th grade social studies teacher, hydrology technician, teacher, public health officer, case supervisor)? Give summary @ -Case discussed with hospitalist for admission Was critical care preformed (if so, how long)? @ -No Undiagnosed new problem with uncertain prognosis? @ -No Drug Therapy requiring intensive monitoring for toxicity (Heparin, Nitro, Insulin, Cardizem)? @ -No Were any procedures done? @ -No Diagnosis/symptom? Acute, or Chronic, or Acute on Chronic? Uncomplicated (without systemic symptoms) or Complicated (systemic symptoms)? @ -Pain pump malfunction Side effects of treatment? @ -No Exacerbation, Progression, or Severe Exacerbation? @ -No Poses a threat to life or bodily function? How? (Chest pain, [place], AR, pneumonia, PE, COPD, DKA, ARF, appy, cholecystitis, CVA, Diverticulitis, Homicidal, Suicidal, threat to staff... and all critical care pts) @ -yes - Lab Data Result diagrams: 03/31/24 03:20 03/31/24 03:20 Lab Results 03/31/24 03/31/24 Range/Units 03:20 03:20 WBC 9.3 (3.8-10.6) k/uL RBC 4.19 (3.80-5.40) m/uL Hgb 12.7 (11.4-16.0) gm/dL Hct 39.3 (34.0-46.0) % MCV 93.7 (80.0-100.0) fL MCH 30.3 (25.0-35.0) pg MCHC 32.4 (31.0-37.0) g/dL RDW 13.7 (11.5-15.5) % Plt Count 241 (150-450) k/uL MPV 8.2 Neutrophils % 91 % Lymphocytes % 5 % Monocytes % 3 % Eosinophils % 1 % Basophils % 0 % Neutrophils # 8.5 H (1.3-7.7) k/uL Lymphocytes # 0.5 L (1.0-4.8) k/uL Monocytes # 0.3 (0-1.0) k/uL Eosinophils # 0.0 (0-0.7) k/uL Basophils # 0.0 (0-0.2) k/uL Sodium 133 L (137-145) mmol/L Potassium 4.6 (3.5-5.1) mmol/L Chloride 99 (98-107) mmol/L Carbon Dioxide 30 (22-30) mmol/L Anion Gap 4 mmol/L BUN 25 H (7-17) mg/dL Creatinine 0.80 (0.52-1.04) mg/dL Est GFR (CKD-EPI)AfAm 82 (>60 ml/min/1.73 sqM) Est GFR (CKD-EPI)NonAf 72 (>60 ml/min/1.73 sqM) Glucose 150 H (74-99) mg/dL Calcium 8.8 (8.4-10.2) mg/dL Total Bilirubin 0.5 (0.2-1.3) mg/dL AST 30 (14-36) U/L ALT 15 (4-34) U/L Alkaline Phosphatase 72 (38-126) U/L Total Protein 7.3 (6.3-8.2) g/dL Albumin 4.7 (3.5-5.0) g/dL Disposition Clinical Impression: Opiate overdose Disposition: ADMITTED IP TO THIS [facility] Condition: Fair Referrals: Jerry Craven DO [Primary Care Provider] - 1-2 days Decision Time: 03:30
[2024-03-31] MEDS: NALOXONE 0.4 MG/ML 1 ML VIAL IVP STA (02:24)
[2024-03-31 03:39] LABS: Basophils % (A) 0 %; Eosinophils % (A) 1 %; HCT 39.3 % (34.0-46.0); HGB 12.7 gm/dL (11.4-16.0); Lymphocytes # (A) 0.5 k/uL (1.0-4.8); Lymphocytes % (A) 5 %; MCH 30.3 pg (25.0-35.0); MCHC 32.4 g/dL (31.0-37.0); MCV 93.7 fL (80.0-100.0); Mean Platelet Volume 8.2; Monocytes # (A) 0.3 k/uL (0-1.0); Monocytes % (A) 3 %; Neutrophils # (A) 8.5 k/uL (1.3-7.7); Neutrophils % (A) 91 %; Platelet Count 241 k/uL (150-450); RBC 4.19 m/uL (3.80-5.40); RDW 13.7 % (11.5-15.5); WBC 9.3 k/uL (3.8-10.6)
[2024-03-31 03:44] LABS: ALT 15 U/L (4-34); AST 30 U/L (14-36); African American GFR (CKD) 82 (>60 ml/min/1.73 sqM); Albumin 4.7 g/dL (3.5-5.0); Alkaline Phosphatase 72 U/L (38-126); Anion Gap 4 mmol/L; Blood Urea Nitrogen 25 mg/dL (7-17); Calcium 8.8 mg/dL (8.4-10.2); Carbon Dioxide 30 mmol/L (22-30); Chloride 99 mmol/L (98-107); Glucose 150 mg/dL (74-99); Non-African American GFR(CKD) 72 (>60 ml/min/1.73 sqM); Potassium 4.6 mmol/L (3.5-5.1); Sodium 133 mmol/L (137-145); Total Bilirubin 0.5 mg/dL (0.2-1.3); Total Protein 7.3 g/dL (6.3-8.2)
--- NOTE | 2024-03-31 05:06 | XR ---
EXAMINATION TYPE: XR chest 1V portable DATE OF EXAM: 03/31/2024 COMPARISON: Chest x-ray February 19, 2019 HISTORY: Lethargy and vomiting with weakness. TECHNIQUE: Single frontal view of the chest is obtained. FINDINGS: There is no suspicious new focal air space opacity, pleural effusion, or pneumothorax seen . Persistent left basilar opacity favoring scarring and/or atelectasis. The cardiac silhouette size r emains within normal limits. Surgical change of cervical spine is partially imaged and new from prior . IMPRESSION: No new acute pulmonary process. [facility], , 03/31/2024 5:03 AM
[2024-03-31] MEDS: SODIUM CHLORIDE 0.9% 1,000 ML IV SCH (06:25)
[2024-03-31] MEDS: NALOXONE 0.4 MG/ML 1 ML VIAL IV PRN (09:59)
[2024-03-31] MEDS: ONDANSETRON 4 MG TAB PO PRN (17:04)
[2024-03-31] MEDS: IPRATROPIUM-ALBUTEROL 3 ML NEB INHALATION STA (19:45)
[2024-03-31 22:40] LABS: Glucose,Whole Blood 165 mg/dL (70-110)
[2024-04-01 04:21] VITALS: TEMP 98.2
--- NOTE | 2024-04-01 11:36 | P.PAINCN ---
History of Present Illness - Reason for Consult Consult date: 04/01/24 - History of Present Illness This is 79 years old female who had chronic pain syndrome, chronic severe low back pain and upper back pain, patient had intrathecal pain pump implanted recently, and she was started on morphine sulfate intrathecally, was admitted to [facility] secondary of morphine overdose, patient started on Narcan, she is currently doing very well, she is alert oriented x 3, she has no focal neurological deficit, intrathecal pain pump analyzed showed that patient currently on morphine sulfate concentration 25 mg/mL, and patient receiving a daily dose of morphine sulfate 1.2 mg/day 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, hypotension, gallstones, constipation, graves disease, "bladder falls backwords" , hx lung and skin cancer, implaneted morphine pain pump, spine stimulator History of Any Multi-Drug Resistant Organisms: None Reported Past Surgical History: Adenoidectomy, Appendectomy, Breast Surgery, Heart Catheterization, Hysterectomy, Orthopedic Surgery, Tonsillectomy Additional Past Surgical History / Comment(s): right upper lung lobectomy, bilat thumb repair, rt bunionectomy, heart catheterization 01/22/19, corby ma stectomy, mult breast biopsies, breast implants/later removed, Past Anesthesia/Blood Transfusion Reactions: Previous Problems w/ Anesthesia, Motion Sickness Additional Past Anesthesia/Blood Transfusion Reaction / Comm: "hypotension when younger" Past Psychological History: No Psychological Hx Reported Smoking Status: Never smoker Past Alcohol Use History: None Reported Additional Past Alcohol Use History / Comment(s): quit smoking 14 yrs ago, sta rted smoking age 17, 3-4 cigarettes daily Past Drug Use History: None Reported - Past Family History Mother Family Medical History: Cancer Daughter(s) Family Medical History: Cancer Medications and Allergies Home Medications Medication Instructions Recorded Confirmed Type Levothyroxine Sodium [Synthroid] 88 mcg PO DAILY 01/21/19 03/31/24 History Tolterodine Tartrate [Detrol LA] 4 mg PO DAILY 01/21/19 03/31/24 History clonazePAM [KlonoPIN] 0.5 mg PO DAILY@1400 01/21/19 03/31/24 History clonazePAM [KlonoPIN] 1.5 mg PO BID 01/21/19 03/31/24 History estradioL [Estrace] 1 mg PO DAILY 01/21/19 03/31/24 History Alclometasone Dipropionate 1 applic TOPICAL BID 03/31/24 03/31/24 History Baclofen [Lioresal] 5 mg PO HS 03/31/24 03/31/24 History HYDROcodone/APAP 7.5-325MG [[place] 0.5 tab PO TID PRN 03/31/24 03/31/24 History 7.5-325] Ipratropium [place] [Ipratropium 2 spr EA NOSTRIL Q6HR PRN 03/31/24 03/31/24 History [place] 0.03%] Linaclotide [Linzess] 72 mcg PO DAILY PRN 03/31/24 03/31/24 History Loratadine 10 mg PO DAILY 03/31/24 03/31/24 History Vitamin B Complex W/Vitamin 1 tab PO DAILY 03/31/24 03/31/24 History D3(Uknown Dose) Allergies Allergy/AdvReac Type Severity Reaction Status Date / Time Iodinated Contrast Media Allergy Rash/Hives Verified 03/31/24 09:44 [Iodinated Contrast- Oral and IV Dye] mold Allergy Dyspnea Verified 03/31/24 09:44 Penicillins Allergy Swelling Verified 03/31/24 09:44 ciprofloxacin [From Cipro] AdvReac Nausea & Verified 03/31/24 09:44 Vomiting diazepam [From Valium] AdvReac "did not Verified 03/31/24 09:44 work" duloxetine [From Cymbalta] AdvReac Nausea & Verified 03/31/24 09:44 Vomiting meperidine [From Demerol] AdvReac Hallucinati Verified 03/31/24 09:44 ons/migrain es oxycodone AdvReac lethargic Verified 03/31/24 09:44 rizatriptan [From Maxalt] AdvReac PALPATITION Verified 03/31/24 09:44 S topiramate [From Topamax] AdvReac SLURRED Verified 03/31/24 09:44 SPEACH chemical smells Allergy Dyspnea Uncoded 03/31/24 09:44 chloraprep Allergy skin peeled Uncoded 03/31/24 09:44 dust Allergy Dyspnea Uncoded 03/31/24 09:44 Physical Exam Vitals: Vital Signs Temp Pulse Pulse Resp BP BP BP 04/01/24 10:34 10 L 04/01/24 07:25 98.2 F 74 17 96/57 04/01/24 04:00 98.2 F 80 9 L 105/63 04/01/24 02:00 80 03/31/24 23:20 78 7 L 109/68 03/31/24 22:40 75 12 108/72 03/31/24 22:23 4 L 03/31/24 20:00 98.0 F 77 18 108/60 03/31/24 19:25 85 16 114/56 03/31/24 17:48 98.3 F 80 18 123/61 03/31/24 16:32 12 03/31/24 15:00 97.9 F 74 18 123/61 Pulse Ox 04/01/24 10:34 04/01/24 07:25 100 04/01/24 04:00 100 04/01/24 02:00 03/31/24 23:20 98 03/31/24 22:40 97 03/31/24 22:23 03/31/24 20:00 98 03/31/24 19:25 98 03/31/24 17:48 98 03/31/24 16:32 03/31/24 15:00 98 Intake and Output 03/31/24 04/01/24 04/01/24 22:59 06:59 14:59 Intake Total 480 10 250 Balance 480 10 250 Intake: IV 10 10 Invasive Line 1 10 10 Oral 480 240 Other: Voiding Method Toilet Toilet # Voids 1 1 1 Weight 54.431 kg 54.9 kg Physical Examinations : -Constitutiona : Cooperative , not in acute distress . -HEENT : nech : supple , no Lymphadenopathy , normal thyroid size . : eyes : no ptosis , no icterus, no photophobia . - neurologic : Cranial nerve II to XII intact , no focal neurological deffecit . -psychatric : alert , oriented X 3 , appropriate affect , intact judgment and insight . -Lymphatic : no Lymphadenopathy . - musculoskeltal : Results CBC & Chem 7: 03/31/24 03:20 03/31/24 03:20 Labs: Abnormal Lab Results - Last 24 Hours (Table) 03/31/24 Range/Units 22:38 POC Glucose (mg/dL) 165 H (70-110) mg/dL Assessment and Plan Plan: Assessment and plan=1-chronic severe low back pain. 2-opioid overdose, Patient ,doing very well, there are Narcan treatment, intrathecal pain pump analyzed and it showed that patient currently on morphine sulfate intrathecally the concentration 25 mg/mL and she is receiving a daily dose of morphine 1.2 mg, I tried to lower the intrathecal opioid dose I was not able to do it through the pain pump, because of high adali ntration, best option is to withdraw part of the intrathecal medication and mix it with saline to dilute the intrathecal medication concentration, I discussed the treatment plan with Dr. Reynaga, and the plan is to send the patient from the hospital to his office which is next to the hospital, will dilute the medication and start her on a lower dose Time with Patient: Less than 30 PQRS Measure Charge Sheet - Pain Location Back Non-Pharmacological Interventions: Environmental Control, Position/Reposition Pharmacological Interventions: Discuss Pain Med Options PQRS Narrative: Smoking Status Current every day smoker Blood Pressure [Left Arm] 96/57 Blood Pressure [Right Arm] 123/61 Blood Pressure 114/56 Pain Intensity [Back] 3 Pain Intensity [Generalized] 0 Scale Used Numeric (1 - 10) Home Medications: Ambulatory Orders Levothyroxine Sodium [Synthroid] 88 mcg PO DAILY 01/21/19 Tolterodine Tartrate [Detrol LA] 4 mg PO DAILY 01/21/19 clonazePAM [KlonoPIN] 0.5 mg PO DAILY@1400 01/21/19 clonazePAM [KlonoPIN] 1.5 mg PO BID 01/21/19 estradioL [Estrace] 1 mg PO DAILY 01/21/19 Alclometasone Dipropionate 1 applic TOPICAL BID 03/31/24 Baclofen [Lioresal] 5 mg PO HS 03/31/24 HYDROcodone/APAP 7.5-325MG [[place] 7.5-325] 0.5 tab PO TID PRN 03/31/24 Ipratropium [place] [Ipratropium [place] 0.03%] 2 spr EA NOSTRIL Q6HR PRN 03/31/24 Linaclotide [Linzess] 72 mcg PO DAILY PRN 03/31/24 Loratadine 10 mg PO DAILY 03/31/24 Vitamin B Complex W/Vitamin D3(Uknown Dose) 1 tab PO DAILY 03/31/24
[2024-04-01 14:19] VITALS: BP 128/57; PULSE 98; RESP 14
--- NOTE | 2024-04-01 20:14 | P.HPIM ---
History of Present Illness H&P Date: 03/31/24 Patient is a pleasant 79-year-old white female who was seen at Dr. Carrizales's office for insertion of intrathecal morphine pump. Apparently either a failed mechanical equipment or a leaking equipment has left patient to have a morphine overdose she was seen in the ER and given Narcan and was instantly improved she was admitted for observation until we can get further care or resolution of this pump. Pain management was consulted to evaluate this since her neurologist Dr. Solis show 8 oh does not come to the hospital for routine consultations. Patient has had some nausea and vomiting as well she denies any fever cough shortness of breath. Review of Systems GENERAL: Patient denies fever. Denies chills. EYES: Denies blurred vision. Denies vision changes. Denies eye pain. EARS, NOSE, MOUTH, & THROAT: Denies headache. Denies sore throat. Denies ear pain. RESPIRATORY: Denies cough. Denies shortness of breath. Denies sputum production. Denies hemoptysis. CARDIOVASCULAR: Denies chest pain or pressure. Denies palpitations. Denies arrhythmias. GASTROINTESTINAL: Denies abdominal pain. Denies diarrhea. Denies constipation. Denies nausea. Denies vomiting. Denies heartburn. Denies blood in the stool. GENITOURINARY: Denies urinary frequency. Denies burning. Denies dysuria. Denies cloudy urine. Denies blood in the urine. MUSCULOSKELETAL: Denies myalgias. Denies joint swelling. Denies decreased range of motion beyond patients baseline. INTEGUMENTARY: Denies pruitis. Denies rash. PSYCHIATRIC: Denies suicidal or homicial ideations. ENDOCRINE: Denies weight change. Denies polydipsia. Denies polyuria. HEMATOLOGIC: Denies bleeding disorders. 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, hypotension, gallstones, constipation, graves disease, "bladder falls backwords", hx lung and skin cancer, implaneted morphine pain pump, spine stimulator History of Any Multi-Drug Resistant Organisms: None Reported Past Surgical History: Adenoidectomy, Appendectomy, Breast Surgery, Heart Catheterization, Hysterectomy, Orthopedic Surgery, Tonsillectomy Additional Past Surgical History / Comment(s): right upper lung lobectomy, bilat thumb repair, rt bunionectomy, heart catheterization 01/22/19, corby mastectomy, mult breast biopsies, breast implants/later removed, Past Anesthesia/Blood Transfusion Reactions: Previous Problems w/ Anesthesia, Motion Sickness Additional Past Anesthesia/Blood Transfusion Reaction / Comment(s): "hypotension when younger" Past Psychological History: No Psychological Hx Reported Smoking Status: Never smoker Past Alcohol Use History: None Reported Additional Past Alcohol Use History / Comment(s): quit smoking 14 yrs ago, started smoking age 17, 3-4 cigarettes daily Past Drug Use History: None Reported - Past Family History Mother Family Medical History: Cancer Daughter(s) Family Medical History: Cancer Medications and Allergies Home Medications Medication Instructions Recorded Confirmed Type Levothyroxine Sodium [Synthroid] 88 mcg PO DAILY 01/21/19 03/31/24 History Tolterodine Tartrate [Detrol LA] 4 mg PO DAILY 01/21/19 03/31/24 History clonazePAM [KlonoPIN] 0.5 mg PO DAILY@1400 01/21/19 03/31/24 History clonazePAM [KlonoPIN] 1.5 mg PO BID 01/21/19 03/31/24 History estradioL [Estrace] 1 mg PO DAILY 01/21/19 03/31/24 History Alclometasone Dipropionate 1 applic TOPICAL BID 03/31/24 03/31/24 History Baclofen [Lioresal] 5 mg PO HS 03/31/24 03/31/24 History HYDROcodone/APAP 7.5-325MG [[place] 0.5 tab PO TID PRN 03/31/24 03/31/24 History 7.5-325] Ipratropium [place] [Ipratropium 2 spr EA NOSTRIL Q6HR PRN 03/31/24 03/31/24 History [place] 0.03%] Linaclotide [Linzess] 72 mcg PO DAILY PRN 03/31/24 03/31/24 History Loratadine 10 mg PO DAILY 03/31/24 03/31/24 History Vitamin B Complex W/Vitamin 1 tab PO DAILY 03/31/24 03/31/24 History D3(Uknown Dose) Allergies Allergy/AdvReac Type Severity Reaction Status Date / Time Iodinated Contrast Media Allergy Rash/Hives Verified 03/31/24 09:44 [Iodinated Contrast- Oral and IV Dye] mold Allergy Dyspnea Verified 03/31/24 09:44 Penicillins Allergy Swelling Verified 03/31/24 09:44 ciprofloxacin [From Cipro] AdvReac Nausea & Verified 03/31/24 09:44 Vomiting diazepam [From Valium] AdvReac "did not Verified 03/31/24 09:44 work" duloxetine [From Cymbalta] AdvReac Nausea & Verified 03/31/24 09:44 Vomiting meperidine [From Demerol] AdvReac Hallucinati Verified 03/31/24 09:44 ons/migrain es oxycodone AdvReac lethargic Verified 03/31/24 09:44 rizatriptan [From Maxalt] AdvReac PALPATITION Verified 03/31/24 09:44 S topiramate [From Topamax] AdvReac SLURRED Verified 03/31/24 09:44 SPEACH chemical smells Allergy Dyspnea Uncoded 03/31/24 09:44 chloraprep Allergy skin peeled Uncoded 03/31/24 09:44 dust Allergy Dyspnea Uncoded 03/31/24 09:44 Physical Exam Vitals: Vital Signs Temp Pulse Pulse Resp BP BP BP 03/31/24 22:23 4 L 03/31/24 20:00 98.0 F 77 18 108/60 03/31/24 19:25 85 16 114/56 03/31/24 17:48 98.3 F 80 18 123/61 03/31/24 16:32 12 03/31/24 15:00 97.9 F 74 18 123/61 03/31/24 10:00 64 18 105/50 03/31/24 09:59 9 L 03/31/24 08:15 78 12 112/60 03/31/24 07:00 74 13 112/62 03/31/24 06:30 64 15 106/60 03/31/24 06:00 72 15 96/60 03/31/24 05:30 96.9 F L 71 15 104/57 03/31/24 05:13 65 16 96/55 03/31/24 03:45 66 10 L 93/57 03/31/24 03:30 67 10 L 100/59 03/31/24 03:17 72 12 100/59 03/31/24 02:54 73 12 113/62 03/31/24 02:24 8 L 03/31/24 02:09 85 10 L 94/55 03/31/24 02:08 91 10 L 03/31/24 01:56 90 14 87/52 Pulse Ox 03/31/24 22:23 03/31/24 20:00 98 03/31/24 19:25 98 03/31/24 17:48 98 03/31/24 16:32 03/31/24 15:00 98 03/31/24 10:00 98 03/31/24 09:59 03/31/24 08:15 98 03/31/24 07:00 97 03/31/24 06:30 100 03/31/24 06:00 94 L 03/31/24 05:30 96 03/31/24 05:13 95 03/31/24 03:45 100 03/31/24 03:30 100 03/31/24 03:17 100 03/31/24 02:54 100 03/31/24 02:24 03/31/24 02:09 99 03/31/24 02:08 88 L 03/31/24 01:56 91 L Intake and Output 03/31/24 03/31/24 04/01/24 14:59 22:59 06:59 Other: Weight 54.431 kg GENERAL: This is a 79-year-old in no apparent distress at the time of examination. Pleasant and cooperative. HEENT: Head is atraumatic, normocephalic. Pupils are equal, round, and reactive to light. Sclerae anicteric. Conjunctivae are clear. Mucus membranes of the mouth are moist. Neck is supple. RESPIRATORY: Clear to auscultation. No wheezes, rales, or rhonchi. No use of accessory muscles. Patient maintaining oxygen saturation greater than 92%. No chest wall tenderness is noted on palpation or with deep breathing. CARDIOVASCULAR: Regular rate and rhythm. S1 and S2 noted. No systolic or diastolic murmur auscultated. No JVD noted. No S3 or S4 noted. GASTROINTESTINAL: Recent incision on the left lower quadrant of her abdomen is seen with apparent intrathecal morphine pump placement just beneath the skin there does not appear to be any tenderness or crepitus at the site of the procedure there does not appear to be any cellulitis. INTEGUMENTARY: No cyanosis. No jaundice. No rashes noted. No cellulitis noted. EXTREMITIES: 2+ peripheral pulses. No evidence of peripheral edema. No calf tenderness noted. NEUROLOGIC: Cranial nerves II-XII intact. PSYCHIATRIC: Awake, alert, and oriented X 3. Appropriate affect. Intact j udgement and insight. Results CBC & Chem 7: 03/31/24 03:20 03/31/24 03:20 Labs: Abnormal Lab Results - Last 24 Hours (Table) 03/31/24 03/31/24 03/31/24 Range/Units 03:20 03:20 22:38 Neutrophils # 8.5 H (1.3-7.7) k/uL Lymphocytes # 0.5 L (1.0-4.8) k/uL Sodium 133 L (137-145) mmol/L BUN 25 H (7-17) mg/dL Glucose 150 H (74-99) mg/dL POC Glucose (mg/dL) 165 H (70-110) mg/dL Assessment and Plan (1) Degenerative lumbar spinal stenosis Status: Acute Code(s): M48.061 - SPINAL STENOSIS, LUMBAR REGION WITHOUT NEUROGENIC MINA SNOMED Code(s): 805691213 (2) Opiate overdose Status: Acute Code(s): T40.601A - POISONING BY UNSP NARCOTICS, ACCIDENTAL, INIT SNOMED Code(s): 987211087 Plan: Plan is to admit patient with pain management to evaluate this problem Narcan as needed Zofran as needed toxin with patient she is hesitant about proceeding with this pump I told her she needs to talk to her main doctor that put it in to get any further treatment.
--- NOTE | 2024-04-01 20:18 | P.DS ---
Providers Date of admission: 03/31/24 04:55 Expected date of discharge: 04/01/24 Attending physician: Jerry Craven Consults: 03/31/24 04:55 Consult Physician Routine Consulting Provider: Poly Zhu Consult Reason/Comments: pain pump evaluation Do you want consulting provider notified?: Yes Primary care physician: Jerry Craven - Discharge Diagnosis(es) (1) Degenerative lumbar spinal stenosis Status: Acute (2) Opiate overdose Status: Acute Hospital Course: Patient was admitted for opioid overdose secondary to either a leaking or malfunctioning intrathecal morphine pump she required multiple doses of Narcan and approximately 4 more doses through the evening patient is doing well this morning and the plan is after discussing this with Dr. Cameron that patient should be discharged after a dose of Narcan administered and patient and with driving should go straight to the office for further treatment and turning off or evaluating the morphine pump Patient Condition at Discharge: Fair Plan - Discharge Summary New Discharge Prescriptions: Continue Tolterodine Tartrate [Detrol LA] 4 mg PO DAILY clonazePAM [KlonoPIN] 0.5 mg PO DAILY@1400 Levothyroxine Sodium [Synthroid] 88 mcg PO DAILY estradioL [Estrace] 1 mg PO DAILY clonazePAM [KlonoPIN] 1.5 mg PO BID HYDROcodone/APAP 7.5-325MG [[place] 7.5-325] 0.5 tab PO TID PRN PRN Reason: Pain Vitamin B Complex W/Vitamin D3(Uknown Dose) 1 tab PO DAILY Loratadine 10 mg PO DAILY Ipratropium [place] [Ipratropium [place] 0.03%] 2 spr EA NOSTRIL Q6HR PRN PRN Reason: Runny Nose Baclofen [Lioresal] 5 mg PO HS Alclometasone Dipropionate 1 applic TOPICAL BID Linaclotide [Linzess] 72 mcg PO DAILY PRN PRN Reason: ibs Discharge Medication List Levothyroxine Sodium [Synthroid] 88 mcg PO DAILY 01/21/19 [History] Tolterodine Tartrate [Detrol LA] 4 mg PO DAILY 01/21/19 [History] clonazePAM [KlonoPIN] 0.5 mg PO DAILY@1400 01/21/19 [History] clonazePAM [KlonoPIN] 1.5 mg PO BID 01/21/19 [History] estradioL [Estrace] 1 mg PO DAILY 01/21/19 [History] Alclometasone Dipropionate 1 applic TOPICAL BID 03/31/24 [History] Baclofen [Lioresal] 5 mg PO HS 03/31/24 [History] HYDROcodone/APAP 7.5-325MG [[place] 7.5-325] 0.5 tab PO TID PRN 03/31/24 [History] Ipratropium [place] [Ipratropium [place] 0.03%] 2 spr EA NOSTRIL Q6HR PRN 03/31/24 [History] Linaclotide [Linzess] 72 mcg PO DAILY PRN 03/31/24 [History] Loratadine 10 mg PO DAILY 03/31/24 [History] Vitamin B Complex W/Vitamin D3(Uknown Dose) 1 tab PO DAILY 03/31/24 [History] Follow up Appointment(s)/Referral(s): Jerry Craven DO [Primary Care Provider] - 04/06/24 9:40 am (with [facility] INSPECTOR) Patient Instructions/Handouts: Local Infusion Pain Management Pump (DC), Opioid Safety (DC), Prescription Opioid Overdose (DC) Discharge Disposition: HOME SELF-CARE
== END 2024-04-01 15:02 | disposition home or self-care (01) ==
LOC: EC 01:53 → 6NMEDSUR 04:55 → 3SCARD 04-01 00:13
PROVIDERS: ADMIT Family Medicine; ATTEND Family Medicine
DX: T40.2X1A Poisoning by other opioids, accidental (unintentional), initial encounter (principal); M48.061 Spinal stenosis, lumbar region without neurogenic claudication; F17.210 Nicotine dependence, cigarettes, uncomplicated; Z85.118 Personal history of other malignant neoplasm of bronchus and lung; Z85.828 Personal history of other malignant neoplasm of skin; Z79.890 Hormone replacement therapy; Z79.899 Other long term (current) drug therapy; Z88.0 Allergy status to penicillin; Z88.1 Allergy status to other antibiotic agents
CPT/HCPCS: 96376 ×2; 96374; 99285; 36415; 93005; 80053; 85025; 71045; G0378 ×3; J2310 ×2